=== PATIENT | female | born 1930 | race Caucasian/White ===

== ENCOUNTER 2017-03-06 19:08 | Inpatient (IN) | payer MEDICARE ==
[~2017-03-06] VITALS: Ht 162.6 cm; Wt 77.1 kg
[2017-03-06 19:30] VITALS: BP 140/74
[2017-03-06] MEDS ORDERED: ASCORBIC ACID250 M1 ORAL (19:35)
[2017-03-06] MEDS ORDERED: CEPACOL SORE T1 EAC5 MM (19:35)
[2017-03-06] MEDS ORDERED: BISACODYL5 MG ORAL (19:35)
[2017-03-06] MEDS ORDERED: GABAPENTIN100 MG ORAL (19:38)
[2017-03-06] MEDS ORDERED: FENTANYL1 EAC1 TOPIC (19:38)
[2017-03-06] MEDS ORDERED: [UNRECOGNIZED DRUG - REMARK] ORAL (19:38)
[2017-03-06] MEDS ORDERED: IMODIUM A-D2 M2 PO (19:39)
[2017-03-06] MEDS ORDERED: LEXAPRO10 MG ORAL (19:39)
[2017-03-06] MEDS ORDERED: FUROSEMIDE40 MG ORAL (19:39)
[2017-03-06] MEDS ORDERED: MULTIVITAMINS1 EAC2 ORAL (19:40)
[2017-03-06] MEDS ORDERED: MILK OF MA400 MG/51 ORAL (19:40)
[2017-03-06] MEDS ORDERED: LIDODERM700 M1 TOPIC (19:40)
[2017-03-06] MEDS ORDERED: NYSTATIN15 GM TOPIC (19:44)
[2017-03-06] MEDS ORDERED: PERI-COLACE TA1 EACH PO (19:44)
[2017-03-06] MEDS ORDERED: MYLANTA PO (19:44)
[2017-03-06] MEDS ORDERED: MIRTAZAPINE15 MG ORAL (19:46)
[2017-03-06] MEDS ORDERED: SYNTHROID75 MCG ORAL (19:46)
[2017-03-06] MEDS ORDERED: ROBITUSSIN NIG237 ML PO (19:46)
[2017-03-06] MEDS ORDERED: TEMAZEPAM15 MG ORAL (19:47)
[2017-03-06] MEDS ORDERED: TYLENOL EXTRA500 MG ORAL (19:47)
[2017-03-06] MEDS ORDERED: ACETAMINOPHEN-1 EAC1 ORAL (19:47)
[2017-03-06] MEDS ORDERED: SIMVASTATIN20 MG ORAL (19:48)
[2017-03-06] MEDS ORDERED: VITAMIN D250000 UNI1 ORAL (19:48)
[2017-03-06] MEDS ORDERED: Acetaminophen 650 MG SUPP RECTAL ONE (20:00)
[2017-03-06 20:20] LABS: APPEARANCE,URINE CLEAR; KETONES,URINE NEGATIVE (NEGATIVE); LEUKOCYTE ESTERASE ,URINE 3+ (NEGATIVE); NITRITE,URINE POSITIVE (NEGATIVE); PH,URINE 5 (4.5-8.0); PROTEIN,URINE 3+ (NEGATIVE); UROBILINOGEN,URINE NORMAL MG/DL (0.0-1.0)
[2017-03-06 20:41] LABS: AMORPHOUS SEDIMENT,UR FEW /LPF; BACTERIA,URINE MODERATE /HPF; SQUAMOUS EPITHELIAL CELL,UR FEW /LPF (NONE/OCC)
[2017-03-06 20:45] LABS: BASOPHILS % (AUTO) 0.4 % (0.0-2.0); EOSINOPHILS % (AUTO) 0.1 % (0.0-3.0); LYMPHOCYTES % (AUTO) 15.3 % (20.0-45.0); MEAN CORPUSCULAR HEMOGLOBIN 30.6 PG (27.0-31.0); MEAN CORPUSCULAR HGB CONC 34.2 G/DL (32.0-36.0); MEAN CORPUSCULAR VOLUME 89 FL (80-99); MEAN PLATELET VOLUME 7.7 FL (6.5-10.1); MONOCYTES % (AUTO) 10.4 % (1.0-10.0); NEUTROPHILS % (AUTO) 73.9 % (45.0-75.0); PLATELET COUNT 158 K/UL (150-450); RED BLOOD COUNT 3.52 M/UL (4.20-5.40); RED CELL DISTRIBUTION WIDTH 13.5 % (11.6-14.8); WHITE BLOOD COUNT 12.1 K/UL (4.8-10.8)
[2017-03-06 20:51] VITALS: BP 114/68
[2017-03-06 20:57] LABS: ALANINE AMINOTRANSFERASE 37 U/L (3-33); ANION GAP 21 (5-15); ASPARTATE AMINO TRANSFERASE 58 U/L (5-40); CALCIUM 8.6 mg/dL (8.6-10.2); CARBON DIOXIDE 22 mEQ/L (20-30); CHLORIDE 94 mEQ/L (98-107); CREATININE 2.1 mg/dL (0.5-0.9); HEMOLYSIS 1; POTASSIUM 3.2 mEQ/L (3.4-4.9); SODIUM 137 mEQ/L (135-145); TOTAL PROTEIN 6.6 g/dL (6.6-8.7)
[2017-03-06 20:59] LABS: REFLEX LACTIC ACID YES OR NO YES; TROPONIN I 0.34 ng/mL (<=0.30)
[2017-03-06 21:07] LABS: CKMB 1.5 ng/mL (< 3.8)
[2017-03-06 21:58] VITALS: BP 92/57
[2017-03-06] MEDS ORDERED: DuoNeb 0.5-3(2.5)mg/3ml neb HHN PRN (22:15)
[2017-03-06] MEDS ORDERED: Mylanta II UD 30ml ORAL PRN (22:15)
[2017-03-06] MEDS ORDERED: Nitroglycerin Subl 0.4mg tab (Bottle Of 25) SL PRN (22:15)
[2017-03-06] MEDS ORDERED: Miralax 17gm pkt ORAL PRN (22:15)
--- NOTE | 2017-03-06 22:19 | Emergency Room Report ---
History of Present Illness General Chief Complaint: Altered Mental Status Source: Family Member, EMS, Caregiver Present Illness HPI 87-year-old female presents to ED for evaluation of altered mental status. Daughter at bedside states that patient has been altered since yesterday. She resides in detention. More lethargic and usual. Patient is normally very awake alert oriented. Patient does open his stimulus but closes her eyes back again. Denies any fevers or chills. Denies chest pain or shortness of breath. No signs of distress. No other aggravating relieving factors. Denies any other associated symptoms Allergies: Coded Allergies: HYDROCODONE (Verified Allergy, Unknown, 03/06/17) PENICILLINS (Unverified Allergy, Unknown, 03/06/17) SULFA (SULFONAMIDE ANTIBIOTICS) (Unverified Allergy, Unknown, 03/06/17) Uncoded Allergies: PENICILLIN (Allergy, Unknown, 03/06/17) SULFA (Allergy, Unknown, 03/06/17) Patient History Past Medical History: none Past Surgical History: none Pertinent Family History: none Social History: Denies: alcohol use, drug use, smoking Immunizations: UTD Reviewed Nursing Documentation: PMH: Agreed, PSxH: Agreed Nursing Documentation-PMH Past Medical History: No History, Except For Review of Systems All Other Systems: negative except mentioned in HPI Physical Exam Vital Signs Date Time Temp Pulse Resp B/P Pulse Ox O2 Delivery O2 Flow Rate FiO2 03/06/17 19:07 98.4 93 16 109/66 98 Nasal Cannula 6.0 Sp02 EP Interpretation: reviewed, normal General Appearance: no apparent distress, non-toxic, lethargic Head: normocephalic, atraumatic Eyes: bilateral eye PERRL, bilateral eye normal inspection ENT: hearing grossly normal, normal pharynx, no angioedema, normal voice Neck: full range of motion, supple/symm/no masses Respiratory: chest non-tender, lungs clear, normal breath sounds, speaking full sentences Cardiovascular #1: regular rate, rhythm, no edema Cardiovascular #2: 2+ carotid (R), 2+ carotid (L), 2+ radial (R), 2+ radial (L) , 2+ dorsalis pedis (R), 2+ dorsalis pedis (L) Gastrointestinal: normal bowel sounds, non tender, soft, non-distended, no guarding, no rebound Rectal: deferred Genitourinary: normal inspection, no CVA tenderness Musculoskeletal: back normal, gait/station normal, normal range of motion, non- tender Neurologic: other - lethargic Psychiatric: other - lethargic Reflexes: 3+ bicep (R), 3+ bicep (L), 3+ tricep (R), 3+ tricep (L), 3+ knee (R) , 3+ knee (L) Skin: normal color, no rash, warm/dry, well hydrated Lymphatic: no adenopathy Procedures Critical Care Time Critical Care Time i. I feel this is a highly complex case requiring extensive working including EKG/Rhythm strip, Xray/CT/US, Blood/urine lab work, repeat exams while in ED, and administration of strong opiates/narcotics for pain control, admission to hospital or close patient follow up. Total time: 30 min bedside evaluation and treatment excludes procedures (EKG). Reason for critical care: AMS, UTI, ARF, elevated troponin Possible complications: hypotension, hypertension, NC, shock, arrhythmias, metabolic acidosis, end organ damage, respiratory failure. Interventions: Labs, IV fluids, CT, EKG, chest x-ray, abx, aspirin Course: Patient brought in for altered mental status x2 days. Labs show leukocytosis, elevated BUN/creatinine, UA positive for bacteria, troponins elevated. EKG no acute ischemic changes. Patient given rectal aspirin. Given antibiotics. Given IV fluids Consultations: nursing staff, EMS, family Performed by: Dr Amos Tolerated well condition = critical j. because of unstable vital signs this patient had a condition that could potentially threaten life or limb. I feel this is a critical patient who required my full attention while patient was considered critical. Total Critical Care Time excluding procedures was greater than 35 minutes Medical Decision Making Diagnostic Impression: Primary Impression: Altered mental status Qualified Codes: R41.82 - Altered mental status, unspecified Additional Impressions: ARF (acute renal failure) Qualified Codes: N17.9 - Acute kidney failure, unspecified UTI (urinary tract infection) Qualified Codes: N39.0 - Urinary tract infection, site not specified Elevated troponin ER Course Hospital Course 87-year-old female presenting to ED with generalized weakness, AMS x 2 days Differential diagnoses include: Pneumonia, UTI, sepsis, dehydration, NC/ unstable angina, CVA Clinical course Patient placed on stretcher. On awake overnight monitor with stable vitals are ED course. After initial history and physical, I ordered labs, IV fluids, EKG, chest x-ray, blood cultures, UA. CT head Labs - BUN/Cr elevated, noted leukocytosis, troponins 0.34, UA grossly positive for UTI EKG - RBBB, no acute ischemic changes CXR - no acute process CT head unremarkable abx given. IV fluids given. Given rectal aspirin. Patient remains altered and not endorsing chest pain. Unclear when the patient last known well time is Case discussed with Dr Cloud and they agreed to admit patient to their service for further care and support I feel this is a highly complex case requiring extensive working including EKG/ Rhythm strip, Xray/CT/US, Blood/urine lab work, repeat exams while in ED, and administration of strong opiates/narcotics for pain control, admission to hospital or close patient follow up. Diagnosis - AMS, ARF, UTI, elevated troponin Patient admitted to [facility] in critical condition Labs Test 03/06/17 19:45 03/06/17 20:00 03/06/17 21:45 Urine Color Yellow Urine Appearance Clear Urine pH 5 (4.5-8.0) Urine Specific [place] 1.015 (1.005-1.035) Urine Protein 3+ (NEGATIVE) Urine Glucose (UA) Negative (NEGATIVE) Urine Ketones Negative (NEGATIVE) Urine Occult Blood 5+ (NEGATIVE) Urine Nitrite Positive (NEGATIVE) Urine Bilirubin Negative (NEGATIVE) Urine Urobilinogen Normal MG/DL (0.0-1.0) Urine Leukocyte Esterase 3+ (NEGATIVE) Urine RBC 10-15 /HPF (0 - 2) Urine WBC 5-10 /HPF (0 - 2) Urine Squamous Epithelial Cells Few /LPF (NONE/OCC) Urine Amorphous Sediment Few /LPF (NONE) Urine Bacteria Moderate /HPF (NONE) Urine Opiates Screen Positive (NEGATIVE) Urine Barbiturates Screen Negative (NEGATIVE) Phencyclidine (PCP) Screen Negative (NEGATIVE) Urine Amphetamines Screen Negative (NEGATIVE) Urine Benzodiazepines Screen Negative (NEGATIVE) Urine Cocaine Screen Negative (NEGATIVE) Urine Marijuana (THC) Screen Negative (NEGATIVE) White Blood Count 12.1 K/UL (4.8-10.8) Red Blood Count 3.52 M/UL (4.20-5.40) Hemoglobin 10.8 G/DL (12.0-16.0) Hematocrit 31.5 % (37.0-47.0) Mean Corpuscular Volume 89 FL (80-99) Mean Corpuscular Hemoglobin 30.6 PG (27.0-31.0) Mean Corpuscular Hemoglobin Concent 34.2 G/DL (32.0-36.0) Red Cell Distribution Width 13.5 % (11.6-14.8) Platelet Count 158 K/UL (150-450) Mean Platelet Volume 7.7 FL (6.5-10.1) Neutrophils (%) (Auto) 73.9 % (45.0-75.0) Lymphocytes (%) (Auto) 15.3 % (20.0-45.0) Monocytes (%) (Auto) 10.4 % (1.0-10.0) Eosinophils (%) (Auto) 0.1 % (0.0-3.0) Basophils (%) (Auto) 0.4 % (0.0-2.0) Sodium Level 137 mEQ/L (135-145) Potassium Level 3.2 mEQ/L (3.4-4.9) Chloride Level 94 mEQ/L (98-107) Carbon Dioxide Level 22 mEQ/L (20-30) Anion Gap 21 (5-15) Blood Urea Nitrogen 44 mg/dL (7-23) Creatinine 2.1 mg/dL (0.5-0.9) Estimat Glomerular Filtration Rate mL/min (>60) Glucose Level 168 mg/dL (74-106) Lactic Acid Level 2.20 mmol/L (0.66-2.22) Calcium Level 8.6 mg/dL (8.6-10.2) Total Bilirubin 0.3 mg/dL (0.0-1.2) Aspartate Amino Transf (AST/SGOT) 58 U/L (5-40) Alanine Aminotransferase (ALT/SGPT) 37 U/L (3-33) Alkaline Phosphatase 138 U/L (35-104) Total Creatine Kinase 318 U/L (26-140) Creatine Kinase MB 1.5 ng/mL (< 3.8) Creatine Kinase MB Relative Index 0.4 Troponin I 0.34 ng/mL (<=0.30) Pro-B-Type Natriuretic Peptide 08471 pg/mL (0-450) Total Protein 6.6 g/dL (6.6-8.7) Albumin 3.4 g/dL (3.5-5.2) Globulin 3.2 g/dL Albumin/Globulin Ratio 1.0 (1.0-2.7) EKG Diagnostic Results Rate: normal Rhythm: NSR ST Segments: other - LBBB ASA given to the pt in ED: Yes Rhythm Strip Diag. Results EP Interpretation: yes Rhythm: NSR, no PVC's, no ectopy Chest X-Ray Diagnostic Results EP Interpretation: Yes Findings: no consolidation, no effusion, no pneumothorax, no acute cardiopulmonary disease Number of Views: 1 CT/MRI/US Diagnostic Results CT/MRI/US Diagnostic Results : Imaging Test Ordered: CT Head Impression no acute process Last Vital Signs Date Time Temp Pulse Resp B/P Pulse Ox O2 Delivery O2 Flow Rate FiO2 03/06/17 21:58 100.3 82 20 92/57 96 Nasal Cannula 5.0 Status: improved Disposition: ADMITTED INPATIENT Condition: Critical Referrals: JAMES MARTINEZ MD (PCP) KASI AMOS M.D. Mar 06, 2017 22:19
[2017-03-06 23:00] LABS: APPEARANCE,URINE CLEAR; KETONES,URINE NEGATIVE (NEGATIVE); LEUKOCYTE ESTERASE ,URINE 3+ (NEGATIVE); NITRITE,URINE POSITIVE (NEGATIVE); PH,URINE 5 (4.5-8.0); PROTEIN,URINE 3+ (NEGATIVE); UROBILINOGEN,URINE NORMAL MG/DL (0.0-1.0)
[2017-03-06 23:09] LABS: AMORPHOUS SEDIMENT,UR FEW /LPF; BACTERIA,URINE MANY /HPF; SQUAMOUS EPITHELIAL CELL,UR FEW /LPF (NONE/OCC)
[2017-03-06 23:30] VITALS: BP 93/59
[2017-03-07] VITALS: BP 96/56
[2017-03-07] MEDS ORDERED: Vancomycin 1gm inj IVPB ONE (00:47)
[2017-03-07] MEDS ORDERED: Vancomycin 1 GM in D5W 275 ML IVPB SCH (01:00)
[2017-03-07 04:00] VITALS: BP 94/57
[2017-03-07 06:56] LABS: BASOPHILS % (AUTO) 0.9 % (0.0-2.0); EOSINOPHILS % (AUTO) 0.2 % (0.0-3.0); LYMPHOCYTES % (AUTO) 24.8 % (20.0-45.0); MEAN CORPUSCULAR HEMOGLOBIN 29.1 PG (27.0-31.0); MEAN CORPUSCULAR HGB CONC 31.7 G/DL (32.0-36.0); MEAN CORPUSCULAR VOLUME 92 FL (80-99); MEAN PLATELET VOLUME 7.4 FL (6.5-10.1); MONOCYTES % (AUTO) 13.8 % (1.0-10.0); NEUTROPHILS % (AUTO) 60.4 % (45.0-75.0); PLATELET COUNT 102 K/UL (150-450); RED BLOOD COUNT 3.49 M/UL (4.20-5.40); RED CELL DISTRIBUTION WIDTH 14.1 % (11.6-14.8); WHITE BLOOD COUNT 9.8 K/UL (4.8-10.8)
[2017-03-07 07:04] LABS: ANION GAP 20 (5-15); CALCIUM 7.9 mg/dL (8.6-10.2); CARBON DIOXIDE 20 mEQ/L (20-30); CHLORIDE 97 mEQ/L (98-107); CREATININE 1.7 mg/dL (0.5-0.9); HEMOLYSIS 25; PHOSPHORUS 3.6 mg/dL (2.5-4.8); POTASSIUM 3.8 mEQ/L (3.4-4.9); SODIUM 137 mEQ/L (135-145)
[2017-03-07 08:00] VITALS: BP 94/58
[2017-03-07] MEDS ORDERED: Heparin 5000 units/ml inj SUBQ SCH (09:00)
[2017-03-07] MEDS: Aztreonam Inj 0.5 GM in NS 55 ML IVPB SCH ×3 (09:01→21:28)
--- NOTE | 2017-03-07 09:04 | Diagnostic Imaging Report ---
Indication: Altered mental status Technique: Contiguous 5 mm thick transaxial imaging of the head obtained in a Siemens Sensation [address] scanner. Soft tissue and bone windows generated. Total Dose length Product (DLP): [address] Dose Index Volume (CTDIvol): 70.38 mGy Comparison: none Findings: There is moderate prominence of the ventricles, basal cisterns, and cerebral sulci consistent with atrophy. Moderate, nonspecific, white matter hypoattenuation is noted throughout the brain consistent with chronic small vessel disease. There is no midline shift, edema, acute hemorrhage, mass effect, or abnormal extra-axial fluid collections. Bones and extra osseous soft tissues are unremarkable. Cataracts noted. Impression: No acute intracranial bleed, mass effect or edema. Moderate atrophy of the brain. Evidence of chronic small vessel disease involving white matter tracts. The CT scanner at [facility] is accredited by the [employer] and the scans are performed using protocols designed to limit radiation exposure to as low as reasonably achievable to attain images of sufficient resolution adequate for diagnostic evaluation.
[2017-03-07] MEDS: Escitalopram Oxalate 5mg tab ORAL SCH (10:06)
[2017-03-07] MEDS ORDERED: NS 275ml ONE (10:07)
[2017-03-07] MEDS ORDERED: Tubing IV Secondary IV ONE ×2 (10:07→22:32)
--- NOTE | 2017-03-07 10:28 | Diagnostic Imaging Report ---
Indication: Chest Pain Comparison: None A single view chest radiograph was obtained. Findings: Left hemidiaphragm is elevated. Left basal atelectasis is present. Lung volumes are low. Bones are osteopenic. Impression: Left basal volume loss with atelectasis noted. Osteopenia
[2017-03-07 12:00] VITALS: BP 93/68
--- NOTE | 2017-03-07 12:25 | Consultation ---
History of Present Illness General Date patient seen: Mar 07, 2017 Chief Complaint: Altered Mental Status Referring physician: Dr. Pablo Reason for Consultation: inpaitent management Present Illness HPI 87-year-old female with hx of Dementia, severe osteoporosis, On fentalnyl patch , presented to ED for evaluation of altered mental status. More lethargic and usual. Patient is normally very awake alert oriented. Patient does open his stimulus but closes her eyes back again. Denies any fevers or chills. She was diagnosed to have acute uti and sepsis, with positive troponin and admitted to [facility] for further care. Allergies: Coded Allergies: HYDROCODONE (Verified Allergy, Unknown, 03/06/17) PENICILLINS (Unverified Allergy, Unknown, 03/06/17) SULFA (SULFONAMIDE ANTIBIOTICS) (Unverified Allergy, Unknown, 03/06/17) Uncoded Allergies: PENICILLIN (Allergy, Unknown, 03/06/17) SULFA (Allergy, Unknown, 03/06/17) Medication History Scheduled Ascorbic Acid* (Ascorbic Acid*), 250 MG ORAL DAILY, (Reported) Bisacodyl* (Dulcolax*), 5 MG ORAL DAILY, (Reported) Ergocalciferol (Vitamin D2)* (Vitamin D*), 50,000 UNIT ORAL ONCE A WEEK, ( Reported) Escitalopram Oxalate* (Lexapro*), 5 MG ORAL DAILY, (Reported) Fentanyl 50MCG Patch (Fentanyl 50MCG Patch*), 1 PATCH TOPIC EVERY 72 HOURS, ( Reported) Furosemide* (Lasix*), 40 MG ORAL TWICE A DAY, (Reported) Gabapentin* (Gabapentin*), 200 MG ORAL BEDTIME, (Reported) Levothyroxine Sodium* (Synthroid*), 75 MCG ORAL DAILY, (Reported) Magnesium Hydroxide* (Milk Of Magnesia*), 30 ML ORAL DAILY, (Reported) Mirtazapine* (Remeron*), 7.5 MG ORAL BEDTIME, (Reported) Multivitamins* (Multivitamins*), 1 TAB ORAL DAILY, (Reported) Nystatin* (Nystatin*), 1 APPLIC TOPIC THREE TIMES A DAY, (Reported) Sennosides/Docusate Sodium (Rola-Colace Tablet), 2 EACH PO DAILY, (Reported) Simvastatin (Zocor), 20 MG ORAL BEDTIME, (Reported) Temazepam (Temazepam*), 15 MG ORAL BEDTIME, (Reported) [Cranberry Pill], 2 CAP ORAL DAILY, (Reported) [Mylanta], 30 ML PO EVERY 6 HOURS, (Reported) Scheduled PRN Acetaminophen With Codeine (T#3) (Tylenol #3 Tab*), 1 TAB ORAL Q4H PRN for For Pain, (Reported) Acetaminophen* (Tylenol Extra Strength*), 500 MG ORAL Q6H PRN for Mild Pain/ Temp > 100.5, (Reported) Benzocaine/Menthol (Cepacol Sore Throat Lozenge), 1 EACH MM EVERY 4 HOURS PRN for P, (Reported) Dextromethorphan Hb/Doxylamine (Robitussin Nighttime Cough Dm), 10 ML PO EVERY 4 HOURS PRN for For Cough, (Reported) Miscellaneous Medications Lidocaine (Lidoderm), 1 PATCH TOPIC, (Reported) Loperamide HCl (Imodium A-D), 2 MG PO, (Reported) Patient History Healthcare decision maker Resuscitation status Full Code Advanced Directive on File Review of Systems All Other Systems: negative except mentioned in HPI Physical Exam General Appearance: WD/WN, no apparent distress Lines, tubes and drains: peripheral, central line HEENT: normocephalic, atraumatic Neck: non-tender, normal alignment Respiratory/Chest: chest wall non-tender, lungs clear, normal breath sounds Cardiovascular/Chest: normal peripheral pulses, normal rate Abdomen: normal bowel sounds, non tender Genitourinary/Rectal: normal genital exam Extremities: normal range of motion Last 24 Hour Vital Signs Date Time Temp Pulse Resp B/P Pulse Ox O2 Delivery O2 Flow Rate FiO2 03/07/17 12:00 97.3 71 20 93/68 99 Nasal Cannula 3.0 03/07/17 08:00 71 03/07/17 08:00 97.0 70 20 94/58 99 Nasal Cannula 3.0 03/07/17 06:39 74 14 Nasal Cannula 2.0 95 03/07/17 04:00 98.2 81 16 94/57 94 Nasal Cannula 03/07/17 04:00 62 03/07/17 00:00 61 03/07/17 00:00 98.1 80 16 96/56 96 Nasal Cannula 03/07/17 00:00 98.1 80 16 96/56 96 Room Air 03/06/17 23:55 98.5 03/06/17 23:30 78 20 93/59 99 Nasal Cannula 5.0 03/06/17 23:30 100.3 78 20 93/59 99 Nasal Cannula 5.0 03/06/17 21:58 100.3 82 20 92/57 96 Nasal Cannula 5.0 03/06/17 20:51 100.7 83 24 114/68 94 Nasal Cannula 5.0 03/06/17 19:30 103.8 88 33 140/74 95 Nasal Cannula 5.0 03/06/17 19:07 98.4 93 16 109/66 98 Nasal Cannula 6.0 Intake and Output 03/06/17 03/07/17 19:00 07:00 Intake Total 0 ml Output Total 1000 ml Balance -1000 ml Intake Oral 0 ml Output Urine Total 1000 ml Laboratory Tests Test 03/06/17 19:45 03/06/17 20:00 03/06/17 21:45 03/07/17 05:57 Urine Color Yellow Urine Appearance Clear Urine pH 5 (4.5-8.0) Urine Specific [place] 1.015 (1.005-1.035) Urine Protein 3+ (NEGATIVE) H Urine Glucose (UA) Negative (NEGATIVE) Urine Ketones Negative (NEGATIVE) Urine Occult Blood 5+ (NEGATIVE) H Urine Nitrite Positive (NEGATIVE) H Urine Bilirubin Negative (NEGATIVE) Urine Urobilinogen Normal MG/DL (0.0-1.0) Urine Leukocyte Esterase 3+ (NEGATIVE) H Urine RBC 10-15 /HPF (0 - 2) H Urine WBC 5-10 /HPF (0 - 2) H Urine Squamous Epithelial Cells Few /LPF (NONE/OCC) Urine Amorphous Sediment Few /LPF (NONE) H Urine Bacteria Many /HPF (NONE) H Urine Fine Granular Casts 2-4 /LPF (NONE) H Urine Eosinophils None seen Urine Osmolality Pending Urine Random Sodium 17 mmol/L Urine Random Chloride 28 mmol/L Urine Potassium Timed 56 mmol/L Urine Opiates Screen Positive (NEGATIVE) H Urine Barbiturates Screen Negative (NEGATIVE) Phencyclidine (PCP) Screen Negative (NEGATIVE) Urine Amphetamines Screen Negative (NEGATIVE) Urine Benzodiazepines Screen Negative (NEGATIVE) Urine Cocaine Screen Negative (NEGATIVE) Urine Marijuana (THC) Screen Negative (NEGATIVE) White Blood Count 12.1 K/UL (4.8-10.8) H 9.8 K/UL (4.8-10.8) Red Blood Count 3.52 M/UL (4.20-5.40) L 3.49 M/UL (4.20-5.40) L Hemoglobin 10.8 G/DL (12.0-16.0) L 10.2 G/DL (12.0-16.0) L Hematocrit 31.5 % (37.0-47.0) L 32.1 % (37.0-47.0) L Mean Corpuscular Volume 89 FL (80-99) 92 FL (80-99) Mean Corpuscular Hemoglobin 30.6 PG (27.0-31.0) 29.1 PG (27.0-31.0) Mean Corpuscular Hemoglobin Concent 34.2 G/DL (32.0-36.0) 31.7 G/DL (32.0-36.0) L Red Cell Distribution Width 13.5 % (11.6-14.8) 14.1 % (11.6-14.8) Platelet Count 158 K/UL (150-450) 102 K/UL (150-450) L Mean Platelet Volume 7.7 FL (6.5-10.1) 7.4 FL (6.5-10.1) Neutrophils (%) (Auto) 73.9 % (45.0-75.0) 60.4 % (45.0-75.0) Lymphocytes (%) (Auto) 15.3 % (20.0-45.0) L 24.8 % (20.0-45.0) Monocytes (%) (Auto) 10.4 % (1.0-10.0) H 13.8 % (1.0-10.0) H Eosinophils (%) (Auto) 0.1 % (0.0-3.0) 0.2 % (0.0-3.0) Basophils (%) (Auto) 0.4 % (0.0-2.0) 0.9 % (0.0-2.0) Sodium Level 137 mEQ/L (135-145) 137 mEQ/L (135-145) Potassium Level 3.2 mEQ/L (3.4-4.9) L 3.8 mEQ/L (3.4-4.9) Chloride Level 94 mEQ/L (98-107) L 97 mEQ/L (98-107) L Carbon Dioxide Level 22 mEQ/L (20-30) 20 mEQ/L (20-30) Anion Gap 21 (5-15) H 20 (5-15) H Blood Urea Nitrogen 44 mg/dL (7-23) H 41 mg/dL (7-23) H Creatinine 2.1 mg/dL (0.5-0.9) H 1.7 mg/dL (0.5-0.9) H Estimat Glomerular Filtration Rate mL/min (>60) mL/min (>60) Glucose Level 168 mg/dL (74-106) H 115 mg/dL (74-106) H Lactic Acid Level 2.20 mmol/L (0.66-2.22) 1.20 mmol/L (0.66-2.22) Calcium Level 8.6 mg/dL (8.6-10.2) 7.9 mg/dL (8.6-10.2) L Total Bilirubin 0.3 mg/dL (0.0-1.2) Aspartate Amino Transf (AST/SGOT) 58 U/L (5-40) H Alanine Aminotransferase (ALT/SGPT) 37 U/L (3-33) H Alkaline Phosphatase 138 U/L (35-104) H Total Creatine Kinase 318 U/L (26-140) H Creatine Kinase MB 1.5 ng/mL (< 3.8) Creatine Kinase MB Relative Index 0.4 Troponin I 0.34 ng/mL (<=0.30) *H Pro-B-Type Natriuretic Peptide 64289 pg/mL (0-450) H Total Protein 6.6 g/dL (6.6-8.7) Albumin 3.4 g/dL (3.5-5.2) L 2.7 g/dL (3.5-5.2) L Globulin 3.2 g/dL Albumin/Globulin Ratio 1.0 (1.0-2.7) Phosphorus Level 3.6 mg/dL (2.5-4.8) Height (Feet): 5 Height (Inches): 4.00 Weight (Pounds): 170 Medications Current Medications Medications (Trade) Dose Ordered Sig/Augusto Route PRN Reason Start Time Stop Time Status Last Admin Dose Admin Acetaminophen (Tylenol) 650 mg Q4H PRN ORAL fever 03/06/17 22:15 04/05/17 22:14 Al Hydroxide/Mg Hydroxide (Mylanta II) 30 ml Q6H PRN ORAL dyspepsia 03/06/17 22:15 04/05/17 22:14 Albuterol/ Ipratropium (DuoNeb 0.5-3(2.5)mg/3ml) 3 ml EVERY 4 HOURS PRN HHN Shortness of Breath 03/06/17 22:15 03/11/17 22:14 Aztreonam 0.5 gm/ Sodium Chloride 55 ml @ 110 mls/hr Q8H IVPB 03/07/17 08:00 03/14/17 07:59 03/07/17 09:01 Dextrose/Sodium Chloride (D5 0.45% NS) 1,000 ml @ 75 mls/hr [id number] IV 03/07/17 12:15 04/06/17 12:14 UNV Escitalopram Oxalate (Lexapro) 5 mg DAILY ORAL 03/07/17 09:00 04/06/17 08:59 03/07/17 10:06 Heparin Sodium (Porcine) 5000 units 5,000 units EVERY 12 HOURS SUBQ 03/07/17 21:00 04/06/17 20:59 Levothyroxine Sodium (Synthroid) 75 mcg DAILY@0630 ORAL 03/07/17 06:30 04/06/17 06:29 03/07/17 05:48 Mirtazapine (Remeron) 7.5 mg BEDTIME ORAL 03/07/17 21:00 04/06/17 20:59 Nitroglycerin (Ntg) 0.4 mg Q5M PRN SL Prn Chest Pain 03/06/17 22:15 04/05/17 22:14 Ondansetron HCl (Zofran) 4 mg Q6H PRN IVP Nausea & Vomiting 03/06/17 22:15 04/05/17 22:14 Polyethylene Glycol (Miralax) 17 gm DAILYPRN PRN ORAL Constipation 03/06/17 22:15 04/05/17 22:14 Temazepam (Restoril) 15 mg HSPRN PRN ORAL Insomnia 03/06/17 22:15 03/13/17 22:14 03/07/17 00:33 Vancomycin HCl 1 ea 1 ea DAILY PRN MISC Per rx protocol 03/06/17 22:15 04/05/17 22:14 Vancomycin HCl/ Dextrose (Vancomycin/D5W) 275 ml @ 183.3 mls/ hr Q24H IVPB 03/07/17 01:00 03/12/17 00:59 03/07/17 00:59 Assessment/Plan Problem List: (1) Sepsis ICD Codes: A41.9 - Sepsis, unspecified organism SNOMED: 87016958 (2) UTI (urinary tract infection) ICD Codes: N39.0 - Urinary tract infection, site not specified SNOMED: 63544397, [id number] Qualifiers: Qualified Codes: N39.0 - Urinary tract infection, site not specified (3) ARF (acute renal failure) ICD Codes: N17.9 - Acute kidney failure, unspecified SNOMED: 67002970 Qualifiers: Qualified Codes: N17.9 - Acute kidney failure, unspecified (4) Elevated troponin ICD Codes: R74.8 - Abnormal levels of other serum enzymes SNOMED: 095015308, 306317182 (5) Altered mental status ICD Codes: R41.82 - Altered mental status, unspecified SNOMED: 470421517, [id number] Qualifiers: Qualified Codes: R41.82 - Altered mental status, unspecified Assessment/Plan iv fluids IV antibiotics check echo check urine cultures renal w/u Neuro evaluation repeat troponin D[place]TON [place] Mar 07, 2017 12:25
--- NOTE | 2017-03-07 12:50 | Cardiology Report ---
APPROVED REPORT EXAM: Two-dimensional and M-mode echocardiogram with Doppler and color Doppler. INDICATION Left Ventricular Function M-Mode DIMENSIONS IVSd1.2 (0.7-1.1cm)Left Atrium (MM)3.4 (1.6-4.0cm) LVDd3.7 (3.5-5.6cm)Aortic Root3.2 (2.0-3.7cm) PWd1.1 (0.7-1.1cm)Aortic Cusp Exc.1.5 (1.5-2.0cm) LVDs2.7 (2.5-4.0cm) PWs1.2 cm Technically difficult study due to poor acoustic windows. Study quality precludes accurate assessment of regional wall motion. Normal left ventricular chamber size, systolic function and wall motion. Left ventricular ejection fraction estimated to be 55 %. Mild left ventricular hypertrophy. No evidence of pericardial fat or effusion. All other cardiac chamber sizes are within normal limits. Mild focal aortic valve sclerosis with adequate cusp excursion. Heavily thickened mitral valve leaflets with normal excursion. Heavy mitral annulus and aortic root calcification. Pulmonic valve not well visualized. Normal tricuspid valve structure. Subcostal views not obtainable. A color flow and spectral Doppler study was performed and revealed: No aortic regurgitation. Mild to moderate mitral regurgitation. Mitral diastolic velocities suggest reduced left ventricular relaxation (Grade I). Moderate to severe tricuspid regurgitation. Tricuspid systolic velocities suggests peak right ventricular systolic pressure of 51 mmHg, consistent with moderate pulmonary hypertension. No pulmonic regurgitation present.
[2017-03-07 12:52] LABS: TROPONIN I < 0.30 ng/mL (<=0.30)
[2017-03-07] MEDS: D5 1/2NS 1,000 ML IV SCH (13:00)
--- NOTE | 2017-03-07 13:10 | Cardiology Report ---
APPROVED REPORT EKG Measurement Heart [id number] CT 136P-7 [id number] Normal sinus rhythm Right bundle branch block Possible Lateral infarct, age undetermined Abnormal ECG
--- NOTE | 2017-03-07 14:36 | Consultation ---
Consult Note Consult Note ID Dic # [id number] DEIS HOLLINGSWORTH M.D. Mar 07, 2017 14:36
--- NOTE | 2017-03-07 15:28 | Wound Care Consultation ---
Wound Assessment Wound Assessment #1: Wound Present on Admission: Yes New Wound: No Status Change of Wound: No Wound Location Body Site Modif: mid Wound Location Body Site: sacral Wound Type: pressure ulcer Pete Test: Does not Pete Pressure Ulcer Stage: IV/unstageable Wound Thickness: Full Thickness Wound Length: 1.5 Wound Width: 0.8 Wound Depth: utd Percent of Wound Bed Yellow/Wh: 100 Wound Drainage Description: Serosanguineous Wound Drainage Amount: Scant Wound Drainage Odor: None/Absent Tissue Surrounding Wound: Macerated Wound General Appearance: Reddened, Necrotic Wound Assessment #2: Wound Number: #2 Wound Present on Admission: Yes New Wound: No Status Change of Wound: No Wound Location Body Site Modif: left, posterior Wound Location Body Site: ear Wound Type: pressure ulcer Pete Test: Does not Pete Pressure Ulcer Stage: I Wound Length: 0.5 Wound Width: 0.3 Percent of Wound Domino/Red: 100 Wound Drainage Amount: None Wound Drainage Odor: None/Absent Tissue Surrounding Wound: Erythemic Wound General Appearance: Reddened Wound Assessment #3: Wound Number: #3 Wound Present on Admission: Yes New Wound: No Status Change of Wound: No Wound Location Body Site Modif: right, posterior Wound Location Body Site: ear Wound Type: pressure ulcer Pete Test: Does not Pete Pressure Ulcer Stage: I Wound Length: 0.3 Wound Width: 0.3 Percent of Wound Domino/Red: 100 Wound Drainage Amount: None Wound Drainage Odor: None/Absent Tissue Surrounding Wound: Erythemic Wound General Appearance: Reddened Wound Comment #1 Sacral stage IV/unstageable pressure ulcer #2 Left ear stage I pressure ulcer #3 Right ear stage I pressure ulcer Recommendation -Sacral area Cleanse with saline, pat dry, apply Therahoney gel to wound bed, apply Triad cream to keiry wound, cover with Bordered gauze daily and PRN soiled/dislodged -Left and Right ear stage I pressure ulcer, Local care per protocol -Offload both heels -Heel protector on both heels -Keep clean and dry -Turn and reposition -Optimize nutrition -Low air loss overlay mattress -Assess and f/u accordingly for any changes ZULY HEDRICK RN Mar 07, 2017 15:28
[2017-03-07 16:00] VITALS: BP 101/66
--- NOTE | 2017-03-07 16:33 | History & Physical ---
History and Physical History & Physicial Dictated for Int Med - Dr Cloud no. [id number]. KANCHAN JAMISON Mar 07, 2017 16:33
[2017-03-07 19:00] LABS: ALANINE AMINOTRANSFERASE 35 U/L (3-33); ALBUMIN/GLOBULIN RATIO 0.9 (1.0-2.7); ANION GAP 26 (5-15); ASPARTATE AMINO TRANSFERASE 61 U/L (5-40); CALCIUM 7.8 mg/dL (8.6-10.2); CARBON DIOXIDE 15 mEQ/L (20-30); CHLORIDE 95 mEQ/L (98-107); CREATININE 1.8 mg/dL (0.5-0.9); HEMOLYSIS 25; MAGNESIUM 2.2 mg/dL (1.7-2.5); PHOSPHORUS 3.7 mg/dL (2.5-4.8); POTASSIUM 4.4 mEQ/L (3.4-4.9); SODIUM 136 mEQ/L (135-145); TOTAL PROTEIN 5.9 g/dL (6.6-8.7); URIC ACID 9.7 mg/dL (3.0-7.5)
[2017-03-07 19:10] LABS: THYROID STIMULATING HORMONE 0.369 uIU/mL (0.300-4.500)
--- NOTE | 2017-03-07 19:37 | Neurology Progress Note ---
Objective Physical Exam Last Vital Signs Date Time Temp Pulse Resp B/P Pulse Ox O2 Delivery O2 Flow Rate FiO2 03/07/17 19:18 Nasal Cannula 3.0 32 03/07/17 19:17 82 16 03/07/17 16:00 98.2 101/66 98 Laboratory Tests Test 03/06/17 19:45 03/06/17 20:00 03/06/17 21:45 03/07/17 05:57 Urine Color Yellow Urine Appearance Clear Urine pH 5 (4.5-8.0) Urine Specific Ackerly 1.015 (1.005-1.035) Urine Protein 3+ (NEGATIVE) H Urine Glucose (UA) Negative (NEGATIVE) Urine Ketones Negative (NEGATIVE) Urine Occult Blood 5+ (NEGATIVE) H Urine Nitrite Positive (NEGATIVE) H Urine Bilirubin Negative (NEGATIVE) Urine Urobilinogen Normal MG/DL (0.0-1.0) Urine Leukocyte Esterase 3+ (NEGATIVE) H Urine RBC 10-15 /HPF (0 - 2) H Urine WBC 5-10 /HPF (0 - 2) H Urine Squamous Epithelial Cells Few /LPF (NONE/OCC) Urine Amorphous Sediment Few /LPF (NONE) H Urine Bacteria Many /HPF (NONE) H Urine Fine Granular Casts 2-4 /LPF (NONE) H Urine Eosinophils None seen Urine Osmolality Pending Urine Random Sodium 17 mmol/L Urine Random Chloride 28 mmol/L Urine Potassium Timed 56 mmol/L Urine Opiates Screen Positive (NEGATIVE) H Urine Barbiturates Screen Negative (NEGATIVE) Phencyclidine (PCP) Screen Negative (NEGATIVE) Urine Amphetamines Screen Negative (NEGATIVE) Urine Benzodiazepines Screen Negative (NEGATIVE) Urine Cocaine Screen Negative (NEGATIVE) Urine Marijuana (THC) Screen Negative (NEGATIVE) White Blood Count 12.1 K/UL (4.8-10.8) H 9.8 K/UL (4.8-10.8) Red Blood Count 3.52 M/UL (4.20-5.40) L 3.49 M/UL (4.20-5.40) L Hemoglobin 10.8 G/DL (12.0-16.0) L 10.2 G/DL (12.0-16.0) L Hematocrit 31.5 % (37.0-47.0) L 32.1 % (37.0-47.0) L Mean Corpuscular Volume 89 FL (80-99) 92 FL (80-99) Mean Corpuscular Hemoglobin 30.6 PG (27.0-31.0) 29.1 PG (27.0-31.0) Mean Corpuscular Hemoglobin Concent 34.2 G/DL (32.0-36.0) 31.7 G/DL (32.0-36.0) L Red Cell Distribution Width 13.5 % (11.6-14.8) 14.1 % (11.6-14.8) Platelet Count 158 K/UL (150-450) 102 K/UL (150-450) L Mean Platelet Volume 7.7 FL (6.5-10.1) 7.4 FL (6.5-10.1) Neutrophils (%) (Auto) 73.9 % (45.0-75.0) 60.4 % (45.0-75.0) Lymphocytes (%) (Auto) 15.3 % (20.0-45.0) L 24.8 % (20.0-45.0) Monocytes (%) (Auto) 10.4 % (1.0-10.0) H 13.8 % (1.0-10.0) H Eosinophils (%) (Auto) 0.1 % (0.0-3.0) 0.2 % (0.0-3.0) Basophils (%) (Auto) 0.4 % (0.0-2.0) 0.9 % (0.0-2.0) Sodium Level 137 mEQ/L (135-145) 137 mEQ/L (135-145) Potassium Level 3.2 mEQ/L (3.4-4.9) L 3.8 mEQ/L (3.4-4.9) Chloride Level 94 mEQ/L (98-107) L 97 mEQ/L (98-107) L Carbon Dioxide Level 22 mEQ/L (20-30) 20 mEQ/L (20-30) Anion Gap 21 (5-15) H 20 (5-15) H Blood Urea Nitrogen 44 mg/dL (7-23) H 41 mg/dL (7-23) H Creatinine 2.1 mg/dL (0.5-0.9) H 1.7 mg/dL (0.5-0.9) H Estimat Glomerular Filtration Rate mL/min (>60) mL/min (>60) Glucose Level 168 mg/dL (74-106) H 115 mg/dL (74-106) H Lactic Acid Level 2.20 mmol/L (0.66-2.22) 1.20 mmol/L (0.66-2.22) Calcium Level 8.6 mg/dL (8.6-10.2) 7.9 mg/dL (8.6-10.2) L Total Bilirubin 0.3 mg/dL (0.0-1.2) 0.2 mg/dL (0.0-1.2) Aspartate Amino Transf (AST/SGOT) 58 U/L (5-40) H 61 U/L (5-40) H Alanine Aminotransferase (ALT/SGPT) 37 U/L (3-33) H 35 U/L (3-33) H Alkaline Phosphatase 138 U/L (35-104) H 120 U/L (35-104) H Total Creatine Kinase 318 U/L (26-140) H Creatine Kinase MB 1.5 ng/mL (< 3.8) Creatine Kinase MB Relative Index 0.4 Troponin I 0.34 ng/mL (<=0.30) *H < 0.30 ng/mL (<=0.30) Pro-B-Type Natriuretic Peptide 62089 pg/mL (0-450) H Total Protein 6.6 g/dL (6.6-8.7) 5.9 g/dL (6.6-8.7) L Albumin 3.4 g/dL (3.5-5.2) L 2.7 g/dL (3.5-5.2) L Globulin 3.2 g/dL 3.1 g/dL Albumin/Globulin Ratio 1.0 (1.0-2.7) 0.9 (1.0-2.7) L Uric Acid 9.7 mg/dL (3.0-7.5) H Phosphorus Level 3.6 mg/dL (2.5-4.8) Magnesium Level 2.2 mg/dL (1.7-2.5) Thyroid Stimulating Hormone (TSH) 0.369 uIU/mL (0.300-4.500) Free Thyroxine 1.11 ng/dL (0.86-1.85) Impression/Recommendations Recommendations # [id number] CATHIE SCHREIBER Mar 07, 2017 19:37
[2017-03-07 20:41] VITALS: BP 125/69
[2017-03-07] MEDS: Heparin 5000 units/ml inj SUBQ SCH (21:00)
--- NOTE | 2017-03-07 22:28 | Consultation ---
DATE OF CONSULTATION: INFECTIOUS DISEASE CONSULTATION: REFERRING PHYSICIAN: Nasreen Benitez M.D. REASON FOR CONSULTATION: Evaluation of patient for sepsis and antibiotic management. HISTORY OF PRESENT ILLNESS: The patient is an 87-year-old female with multiple medical problems as listed below who was brought to the emergency room due to worsening of mental status with general weakness. The patient has been admitted to this medical center for further workup. Infectious diseases consultation has been requested for further evaluation of the patient's for possible sepsis. At time of admission, the patient has leukocytosis of 12,000. PAST MEDICAL HISTORY: 1. History of chronic low back pain. 2. Osteoporosis. 3. Hyperlipidemia. 4. Hypothyroidism. MEDICATIONS: IV aztreonam and vancomycin. ALLERGIES: Penicillin and sulfa. SOCIAL HISTORY: The patient lives in [facility]. FAMILY HISTORY: Not contributing. REVIEW OF SYSTEMS: HEENT: No recent change in vision or hearing. Pulmonary: No cough or shortness of breath. Cardiovascular: No chest pain or palpitations. Gastrointestinal/Abdomen: No nausea or vomiting. Genitourinary: No dysuria. PHYSICAL EXAMINATION: VITAL SIGNS: Temperature 97.3 degrees, blood pressure 92/68, pulse 86, respiratory rate 18, and T-max 103.8 degrees. HEENT: Mild pale conjunctivae. No icterus. NECK: Supple. CHEST: Coarse breathing sounds. HEART: S1-S2 . ABDOMEN: Soft and nontender. EXTREMITIES: No cyanosis. NEUROLOGIC: Awake and alert. LABORATORY AND DIAGNOSTIC DATA: CT scan, no acute intracranial bleed. Chest x-ray with left basal volume loss, atelectasis osteopenia. Labs, WBC 9.8, hemoglobin 10.2, and platelets 102,000. UA shows 5 to 10 white blood cells and 10 to 15 red blood cells. BUN 41 and creatinine 1.7. ALT, AST, and alkaline phosphatase are mildly elevated. ASSESSMENT: The patient is an 87-year-old female with multiple medical problems who has been admitted to this medical center due to fever and worsening mental status and general weakness that appears has overall improved since admission. The patient was found abnormal liver function tests. possibility of bacteremia and urinary tract infection biliary disease. PLAN: 1. We will continue the patient on vancomycin and aztreonam for now. 2. Monitor CBC. 3. Monitor BMP. 4. Monitor cultures (blood and urine). 5. Ultrasound of the abdomen and evaluation of biliary tract. 6. Monitor chest x-ray. 7. Based on patient's current labs, we will do further recommendation. Thank you, Dr. Benitez, for allowing me to participate in the care of this patient. I will follow the patient with you during this hospitalization. Will Mario M.D. DR: Beckie JOB#: [id number] CC:
[2017-03-07] MEDS ORDERED: D5 1/2NS 1000ml IV ONE (22:32)
--- NOTE | 2017-03-07 23:28 | History and Physical Report ---
DATE OF ADMISSION: 03/06/2017 CHIEF COMPLAINT: The patient is an 87-year-old white female who presents with a chief complaint of altered mental status. HISTORY OF PRESENT ILLNESS: Much of the history and physical is obtained from the patient's chart. The patient still is unable to provide much of the history and physical. The patient is a resident of [facility]. According to staff at [facility], the patient became increasingly altered over the past 24 hours. The patient did not know where she was. The patient was transported to [facility] Emergency room. The patient was found to have urinary tract infection. The patient was admitted for altered mental status and urinary tract infection to rule out sepsis. PAST MEDICAL HISTORY: Significant for, 1. Hypothyroidism. 2. Hypercholesterolemia. 3. Lumbar stenosis. 4. Osteoporosis. PAST SURGICAL HISTORY: Unknown. CURRENT MEDICATIONS: 1. Vitamin C one tablet p.o. daily. 2. Cranberry pills two tablets p.o. daily. 3. Neurontin 100 mg two tablets p.o. at bedtime. 4. Lasix 40 mg one tablet p.o. twice daily. 5. Lexapro 5 mg one tablet p.o. daily. 6. Lidoderm patch applied daily. 7. Remeron 15 mg one-half tablet p.o. at bedtime. 8. Synthroid 0.075 mg one tablet p.o. daily. 9. Restoril 15 mg one tablet p.o. at bedtime. 10. Zocor 20 mg one tablet p.o. at bedtime. ALLERGIES: 1. Sulfa. 2. Penicillin. 3. Hydrocodone. SOCIAL HISTORY: The patient is and denies tobacco or alcohol use. REVIEW OF SYSTEMS: Unable to obtain secondary to the patient's mental status. PHYSICAL EXAMINATION: VITAL SIGNS: Temperature 98.1 degrees, respirations 16, pulse 80, blood pressure 93 to 96/56 to 68. GENERAL: The patient is a well-developed and well-nourished pleasant white female, in no apparent distress. HEENT: Eyes, pupils are equal and responsive to light and accommodation. Extraocular movements are intact. NECK: Supple without lymphadenopathy. CHEST: Lungs are clear to auscultation bilaterally without wheezes or rales. CARDIOVASCULAR: Regular rate. S1 and S2 are normal without murmurs, rubs, or gallops. ABDOMEN: Soft, nontender, and nondistended. Positive bowel sounds. No evidence of hepatosplenomegaly. Currently, no rebound or guarding noted. EXTREMITIES: Negative for clubbing, cyanosis, or edema. RECTAL/GENITAL: Refused. NEUROLOGIC: Cranial nerves II through XII are grossly intact without focal deficits. Motor strength is 5/5 bilaterally. Deep tendon reflexes 2+ plantar. LABORATORY STUDIES: WBC 12.1, hemoglobin 10.8, hematocrit 31.5, and platelets 158,000. Sodium 137, potassium 3.2, chloride 94, CO2 22, BUN 44, and creatinine 2.1. Glucose 168. BNP elevated at 18,421. Urinalysis showed 5+ occult blood, positive nitrites, and 3+ leukocyte esterase with 10 to 15 RBCs and 5 to 10 WBCs. ASSESSMENT: This is an 87-year-old white female. 1. Altered mental status. 2. Urinary tract infection. 3. Acute renal failure. 4. Congestive heart failure. 5. Hypothyroidism. 6. Hypercholesterolemia. 7. Lumbar stenosis. 8. Osteoporosis. TREATMENT: 1. Urinary tract infection. An Infectious Disease consultation has been obtained with Dr. Mario. The patient has been started empirically on vancomycin and aztreonam. This is to cover for atypical bacteria as the patient is a senior care facility patient. We will follow recommendations of Infectious Disease. Wait for urine and blood culture results. 2. Renal failure. This may be secondary to urinary tract infection as above. 3. Altered mental status is probably secondary to urinary tract infection as above. 4. Congestive heart failure. Repeat BMP is pending. Initial troponin level is within normal limits. 5. Hypothyroidism. Continue Synthroid as above. 6. Hypercholesterolemia. Continue Zocor as above. 7. Lumbar stenosis. 8. Osteoporosis. Adrian Pablo M.D. DR: DOROTEO JOB#: [id number] CC:
--- NOTE | 2017-03-07 23:28 | Consultation ---
DATE OF CONSULTATION: 03/07/2017 NEUROLOGICAL CONSULTATION CONSULTING PHYSICIAN: Ryan Ceballos M.D. PRIMARY PHYSICIAN: Lito Adore Rodriguez REQUESTING PHYSICIAN: Lv Cloud M.D. HISTORY OF PRESENT ILLNESS: The patient is an 87-year-old female seen in neurological consultation to evaluate new changes in mental status. The patient was examined in the presence of her daughter, who gave additional information. Apparently, three days ago, she was found to be unusually weak, but still coherent than yesterday. Family came and visited, found her in bed sleepy, mumbling, incoherent, and confused. Paramedics were called to the scene. She was brought to emergency room. She was described as opening eyes to stimulation only briefly. Vital signs on admission included blood pressure 109/66, she was afebrile, but lethargic. Her initial diagnostic studies included EKG with right bundle-branch block. No acute ischemic changes. Laboratory work included CBC study with elevated WBC 12.1, anemia, hemoglobin 10, and hematocrit 31.5. Chemistry panel, elevated anion gap of 21, BUN of 44 and creatinine of 2.1. Elevated AST at 58, ALT 37, and CK of 318. Elevated BNP 18,421. Toxicology panel was positive only for opiates. Her urinalysis with WBC 5-10 with 3+ leukocyte esterase and 3+ protein. Her CAT scan of the brain revealed moderate ventriculomegaly, atrophy, white matter hypoattenuation consistent with chronic small vessel disease. No evidence of acute abnormalities noted. Her chest x-ray shows left basal volume loss with atelectasis noted. Since admission until present, the patient is maintained on IV fluids and antibiotics; her condition improved. PAST MEDICAL HISTORY: The patient has a history of chronic low back pain due to severe spinal stenosis, history of severe osteoporosis, hyperlipidemia, and hypothyroidism. The patient has chronic pain, which is opiate dependent. She has chronic constipation. MEDICATIONS: Her treatment included Robitussin, Lexapro 5 mg daily, fentanyl patch 50 mcg every 72 hours, furosemide, gabapentin 200 mg at bedtime, Synthroid, lidocaine patch, Imodium, milk of magnesia, Remeron 7.5 mg at bedtime, nystatin, simvastatin 20 mg at bedtime, and temazepam. The patient has p.r.n. Tylenol No. 3. ALLERGIES: Hydrocodone, penicillin, and sulfa drugs. SOCIAL HISTORY: The patient is a resident of a nursing facility. She has supportive family. No evidence of alcohol or drug abuse. Nonsmoker. FAMILY HISTORY: Noncontributory. REVIEW OF SYSTEMS: The patient's baseline being awake, coherent with mild cognitive deficiency, being able to serve herself food, helping with dressing. She is wheelchair bound for at least last three years. She has a history of chronic low back pain. Pain in her both lower extremities for at least 10 to 12 years. This made her bedridden and wheelchair bound while being maintained on opiates for pain management. Denies chest pain or palpitation. No headache. No dizziness. She has constipation, but no urine incontinence. Obesity, some forgetfulness. PHYSICAL EXAMINATION: GENERAL: This is a well-developed, moderately obese female, lying comfortably in bed, daughter at bedside. VITAL SIGNS: Now stable, although blood pressure 93/68, temperature 97.3 degrees, heart rate of 71, and pulse oximetry 99%. HEENT: Head, normocephalic. No evidence of trauma. Eyes, ears, and throat are clear. NECK: Supple. No meningeal signs. MUSCULOSKELETAL: Remarkable for tenderness in patient's left shoulder with significant limitation in range of motion, chronic. Acute tenderness on palpation of lumbar paraspinal region. Arthritic changes in both knees and ankles. Peripheral pulses 1+ and symmetric. MENTAL STATUS: The patient is alert and oriented to her name, age, but forgets the name of the place. She is coherent, although has limited verbal output. CRANIAL NERVE II: Pupils, both responding to light and accommodation. Extraocular movements intact. No nystagmus. CRANIAL NERVE V: Normal corneal responses. CRANIAL NERVE VII: No facial asymmetry. CRANIAL NERVE VIII: Decreased hearing. CRANIAL NERVE IX THROUGH XII: Tongue is in midline. Symmetric palate elevation. MOTOR EXAMINATION: Normal muscle tone and strength in both upper extremities except limitation in range of motion of left shoulder. She has significant rigidity in both lower extremities, unable to lift against gravity both lower extremities, 5-/5 both feet flexion and extension. Deep tendon reflexes depressed bilaterally. Plantar response is mute. SENSORY EXAMINATION: Withdrawing to pin stimulation all limbs. IMPRESSION: 1. New onset of verbal unresponsiveness, lethargy due to underlying infection, urinary tract infection or pneumonia in the setting of sedative treatment with opiates. 2. Mild cognitive impairment. 3. Severe lumbar spinal stenosis with paraparesis, wheelchair bound. 4. Chronic pain syndrome, opiate dependent. 5. History of hypothyroidism. 6. History of hyperlipidemia. 7. History of depression. RECOMMENDATION: The patient to continue with IV fluids, antibiotics to cover underlying infection. Attempt to somewhat reduce her opiates from 50 to 25 mcg per 72 hours. Avoid Tylenol with codeine. Continue with aspirin. Discussed the patient's status with the family. Thank you for allowing me to see this interesting patient in neurological consultation. Ryan Adore Ceballos DR: GYPSY JOB#: [id number] CC:
[2017-03-08] VITALS: BP 125/69
[2017-03-08] MEDS ORDERED: Vancomycin 1 GM in D5W 275 ML IVPB SCH (01:00)
[2017-03-08] MEDS: D5 1/2NS 1,000 ML IV SCH ×2 (03:03→17:45)
[2017-03-08 04:00] VITALS: BP 118/71
[2017-03-08 05:17] LABS: ANION GAP 19 (5-15); CALCIUM 8.6 mg/dL (8.6-10.2); CARBON DIOXIDE 22 mEQ/L (20-30); CHLORIDE 97 mEQ/L (98-107); CREATININE 1.4 mg/dL (0.5-0.9); HEMOLYSIS 14; POTASSIUM 3.8 mEQ/L (3.4-4.9); SODIUM 138 mEQ/L (135-145)
[2017-03-08 05:26] LABS: BASOPHILS % (AUTO) 0.7 % (0.0-2.0); EOSINOPHILS % (AUTO) 1.4 % (0.0-3.0); LYMPHOCYTES % (AUTO) 21.6 % (20.0-45.0); MEAN CORPUSCULAR HEMOGLOBIN 29.3 PG (27.0-31.0); MEAN CORPUSCULAR HGB CONC 31.7 G/DL (32.0-36.0); MEAN CORPUSCULAR VOLUME 92 FL (80-99); MEAN PLATELET VOLUME 7.7 FL (6.5-10.1); MONOCYTES % (AUTO) 11.6 % (1.0-10.0); NEUTROPHILS % (AUTO) 64.7 % (45.0-75.0); PLATELET COUNT 180 K/UL (150-450); RED CELL DISTRIBUTION WIDTH 14.7 % (11.6-14.8); WHITE BLOOD COUNT 8.6 K/UL (4.8-10.8)
[2017-03-08 06:00] LABS: TROPONIN I < 0.30 ng/mL (<=0.30)
[2017-03-08] MEDS: Aztreonam Inj 0.5 GM in NS 55 ML IVPB SCH ×3 (07:36→23:35)
[2017-03-08 08:00] VITALS: BP 102/65
[2017-03-08] MEDS ORDERED: Vancomycin 1gm/D5W 275ml IVPB ONE ×2 (08:00)
[2017-03-08] MEDS: Escitalopram Oxalate 5mg tab ORAL SCH (08:31)
[2017-03-08] MEDS: Heparin 5000 units/ml inj SUBQ SCH ×2 (08:32→20:50)
--- NOTE | 2017-03-08 09:25 | Diagnostic Imaging Report ---
Indication: Abnormal renal function tests Technique: Grayscale and duplex images of the kidneys, retroperitoneum, and bladder were obtained. Comparison: Findings: Right kidney measures 11.7 cm in length. Left kidney measures 8.7 cm in length. Both kidneys demonstrate normal echogenicity. No hydronephrosis. Possible 2.7 cm diameter exophytic mass is seen on the border of the interpolar region of the left kidney. This is isoechoic to renal parenchyma, could just represent a dromedary hump. Normal inferior vena cava. Bladder is empty, contains a Antunez catheter. Impression: Exophytic 2.7 cm left renal mass versus physiologic dromedary hump. If clinically indicated, consider CT to clarify Negative for hydronephrosis Mildly atrophic left kidney Empty bladder with Antunez catheter.
--- NOTE | 2017-03-08 11:58 | Diagnostic Imaging Report ---
Indication: Abdominal pain Technique: Grayscale and duplex images of the right upper quadrant Comparison: None Findings: The pancreas is unremarkable. The liver demonstrates normal echogenicity, no focal abnormality. There is a trace right pleural effusion. Gallbladder is poorly visualized. Shadowing in the region of the gallbladder fossa likely reflects gallstones if the gallbladder is present, but could also represent shadowing from the duodenum if there has been prior cholecystectomy. Common bile duct measures 3 mm in diameter. Right kidney measures 9.8 cm in length, demonstrates a 1 cm upper pole cyst Impression: Uncertain visualization of the gallbladder. Shadowing gallbladder fossa may represent a stone filled gallbladder, versus shadowing from the duodenum if there has been prior cholecystectomy. Correlate with surgical history. Negative for dilated ducts Small right pleural effusion Incidental finding right upper pole renal cyst
[2017-03-08 12:00] VITALS: BP 94/62
[2017-03-08 16:00] VITALS: BP 125/69
--- NOTE | 2017-03-08 16:22 | Internal Med Progress Note ---
Subjective Date of Service: Mar 08, 2017 Physician Name Kanchan Jamison Attending Physician Lv Cloud MD Current Medications Medications (Trade) Dose Ordered Sig/Augusto Route PRN Reason Start Time Stop Time Status Last Admin Dose Admin Acetaminophen (Tylenol) 650 mg Q4H PRN ORAL fever 03/06/17 22:15 04/05/17 22:14 Al Hydroxide/Mg Hydroxide (Mylanta II) 30 ml Q6H PRN ORAL dyspepsia 03/06/17 22:15 04/05/17 22:14 Albuterol/ Ipratropium (DuoNeb 0.5-3(2.5)mg/3ml) 3 ml EVERY 4 HOURS PRN HHN Shortness of Breath 03/06/17 22:15 03/11/17 22:14 Aztreonam/Sodium Chloride (Azactam/Sodium Chloride) 55 ml @ 110 mls/hr Q8H IVPB 03/07/17 08:00 03/14/17 07:59 03/08/17 07:36 Dextrose/Sodium Chloride (D5 0.45% NS) 1,000 ml @ 75 mls/hr [id number] IV 03/07/17 13:00 04/06/17 12:59 03/08/17 03:03 Escitalopram Oxalate (Lexapro) 5 mg DAILY ORAL 03/07/17 09:00 04/06/17 08:59 03/08/17 08:31 Heparin Sodium (Porcine) 5000 units 5,000 units EVERY 12 HOURS SUBQ 03/07/17 21:00 04/06/17 20:59 03/08/17 08:32 Levothyroxine Sodium (Synthroid) 75 mcg DAILY@0630 ORAL 03/07/17 06:30 04/06/17 06:29 03/08/17 07:22 Lidocaine 1 patch 1 patch DAILY TDERMAL 03/07/17 12:30 04/06/17 12:29 03/08/17 08:31 Mirtazapine (Remeron) 7.5 mg BEDTIME ORAL 03/07/17 21:00 04/06/17 20:59 03/07/17 21:29 Nitroglycerin (Ntg) 0.4 mg Q5M PRN SL Prn Chest Pain 03/06/17 22:15 04/05/17 22:14 Ondansetron HCl (Zofran) 4 mg Q6H PRN IVP Nausea & Vomiting 03/06/17 22:15 04/05/17 22:14 Polyethylene Glycol (Miralax) 17 gm DAILYPRN PRN ORAL Constipation 03/06/17 22:15 04/05/17 22:14 Temazepam (Restoril) 15 mg HSPRN PRN ORAL Insomnia 03/06/17 22:15 03/13/17 22:14 03/07/17 00:33 Vancomycin HCl 1 ea 1 ea DAILY PRN MISC Per rx protocol 03/06/17 22:15 04/05/17 22:14 Vancomycin HCl/ Dextrose (Vancomycin/D5W) 275 ml @ 183.708 mls/hr Q24H IVPB 03/09/17 06:00 03/14/17 05:59 Allergies: Coded Allergies: HYDROCODONE (Verified Allergy, Unknown, 03/06/17) PENICILLINS (Unverified Allergy, Unknown, 03/06/17) SULFA (SULFONAMIDE ANTIBIOTICS) (Unverified Allergy, Unknown, 03/06/17) Uncoded Allergies: PENICILLIN (Allergy, Unknown, 03/06/17) SULFA (Allergy, Unknown, 03/06/17) ROS Limited/Unobtainable: No Constitutional: Reports: no symptoms HEENT: Reports: no symptoms Cardiovascular: Reports: no symptoms Respiratory: Reports: no symptoms Gastrointestinal/Abdominal: Reports: no symptoms Genitourinary: Reports: no symptoms Neurologic/Psychiatric: Reports: no symptoms Subjective 87 YO F admitted with altered mental status. Now UTI. Cover for Int Med-Dr Cloud. Objective Last Vital Signs Date Time Temp Pulse Resp B/P Pulse Ox O2 Delivery O2 Flow Rate FiO2 03/08/17 12:00 97.7 77 18 94/62 98 Nasal Cannula 2.0 03/08/17 07:58 32 Laboratory Tests Test 03/08/17 04:39 White Blood Count 8.6 K/UL (4.8-10.8) Red Blood Count 3.70 M/UL (4.20-5.40) L Hemoglobin 10.8 G/DL (12.0-16.0) L Hematocrit 34.2 % (37.0-47.0) L Mean Corpuscular Volume 92 FL (80-99) Mean Corpuscular Hemoglobin 29.3 PG (27.0-31.0) Mean Corpuscular Hemoglobin Concent 31.7 G/DL (32.0-36.0) L Red Cell Distribution Width 14.7 % (11.6-14.8) Platelet Count 180 K/UL (150-450) # Mean Platelet Volume 7.7 FL (6.5-10.1) Neutrophils (%) (Auto) 64.7 % (45.0-75.0) Lymphocytes (%) (Auto) 21.6 % (20.0-45.0) Monocytes (%) (Auto) 11.6 % (1.0-10.0) H Eosinophils (%) (Auto) 1.4 % (0.0-3.0) Basophils (%) (Auto) 0.7 % (0.0-2.0) Sodium Level 138 mEQ/L (135-145) Potassium Level 3.8 mEQ/L (3.4-4.9) Chloride Level 97 mEQ/L (98-107) L Carbon Dioxide Level 22 mEQ/L (20-30) Anion Gap 19 (5-15) H Blood Urea Nitrogen 34 mg/dL (7-23) H Creatinine 1.4 mg/dL (0.5-0.9) H Estimat Glomerular Filtration Rate mL/min (>60) Glucose Level 109 mg/dL (74-106) H Calcium Level 8.6 mg/dL (8.6-10.2) Troponin I < 0.30 ng/mL (<=0.30) Thyroid Stimulating Hormone (TSH) 3.790 uIU/mL (0.300-4.500) Random Vancomycin Level 8.2 ug/mL Hepatitis A IgM Antibody Pending Hepatitis B Surface Antigen Pending Hepatitis B Core IgM Antibody Pending Hepatitis C Antibody Pending Microbiology Date/Time Source Procedure Growth Status 03/06/17 20:15 Blood Blood Culture - Preliminary NO GROWTH AFTER 24 HOURS Resulted 03/06/17 20:00 Blood Blood Culture - Preliminary NO GROWTH AFTER 24 HOURS Resulted 03/06/17 09:20 Nasal Nares MRSA Culture - Final NO METHICILLIN RESISTANT STAPH AUREUS... Complete 03/06/17 19:45 Urine,Clean Catch Urine Culture - Preliminary Gram Negative Ramesh Resulted 03/07/17 00:00 Sacral Wound Gram Stain - Final Resulted 03/07/17 00:00 Wound Culture - Preliminary Gram Negative Ramesh Resulted 03/06/17 19:45 Rectum VRE Culture - Final NO VANCOMYCIN RESISTANT ENTEROCOCCUS ... Complete Intake and Output 03/07/17 03/08/17 19:00 07:00 Intake Total 800 ml 1175 ml Output Total 375 ml 500 ml Balance 425 ml 675 ml Intake Oral 240 ml IV Total 560 ml 1175 ml Output Urine Total 375 ml 500 ml Objective General: alert, cooperative, no distress, appears stated age Head: normocephalic, without obvious abnormality, atraumatic Eyes: conjunctivae/corneas clear. PERRL, EOM's intact Throat: lips, mucosa, and tongue normal. MMM Neck: supple, symmetrical, trachea midline, and no JVD Lungs: clear to auscultation bilaterally Heart: regular rate and rhythm, S1, S2 normal, no murmur, click, rub or gallop Abdomen: soft, non-tender, non-distended, bowel sounds normal; no masses or organomegaly Extremities: extremities normal, atraumatic, no cyanosis or edema Pulses: 2+ and symmetric Skin: skin color, texture, turgor normal; no rashes or lesions Neurologic: grossly normal, no focal deficits Assessment/Plan Problem List: (1) Renal failure (ARF), acute on chronic Assessment & Plan: Resolving on IV fluids. (2) Congestive heart failure (3) Hypothyroidism Assessment & Plan: Cont levoxyl. (4) Hypercholesteremia (5) Lumbar stenosis (6) Osteoporosis (7) UTI (urinary tract infection) Assessment & Plan: Gram neg ramesh. Cont aztreonam for now; await ID and Sens. See ID note. (8) ARF (acute renal failure) (9) Altered mental status Status: not improved KANCHAN JAMISON Mar 08, 2017 16:22
--- NOTE | 2017-03-08 17:46 | Pulmonology Progress Note ---
Assessment/Plan Assessment/Plan ASSESSMENT acute encephalopathy( likely due to infectious process) ARF possible sepsis UTI elevated troponin new onset of verbal unresponsiveness, lethargy(liekly due to underlying infection/UTI in the setting of treatment with opiates). mild cognitive impairment. 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 sacral decub st 4 POA L and R ear st 1 POA hypothyroidism moderate pulmonary HTN elevated transaminase PLAN OF CARE MALU CT head negative for acute pathology IVF abx , urine cx + GNR, blood cx preliminary negative ID follows renal US no hydro, exophytic 2.7 cm left renal mass versus physiologic dromedary hump. neuro eval appreciated serial troponin negative after the first with minimal elevation of 0.34 ECHO with EF 55% and RVSP of 51 c/w mdoerate pulmonary HTN O2 HHN prn DVT prophylaxis swallow eval PT/OT judicious use of narcotics TSH WNL, continue current dose of levothyroxine trend LFT, hep panel pending, abdominal US - no dilated ducts, shadowing gallbladder fossa may represent a stone filled gallbladder, versus shadowing from the duodenum will check CT A/P when creat better wound care as per wound nurse recommendation case discussed and evaluated by supervising physician Subjective Allergies: Coded Allergies: HYDROCODONE (Verified Allergy, Unknown, 03/06/17) PENICILLINS (Unverified Allergy, Unknown, 03/06/17) SULFA (SULFONAMIDE ANTIBIOTICS) (Unverified Allergy, Unknown, 03/06/17) Uncoded Allergies: PENICILLIN (Allergy, Unknown, 03/06/17) SULFA (Allergy, Unknown, 03/06/17) Subjective leukocytosis resolved, afebrile renal parameters with significant improvement last 2 troponin negative after 1st with minimal elevation-0.34 on O2 via NC no signs of respiratory distress Objective Last 24 Hour Vital Signs Date Time Temp Pulse Resp B/P Pulse Ox O2 Delivery O2 Flow Rate FiO2 03/08/17 16:00 97.9 82 18 125/69 98 Nasal Cannula 2.0 03/08/17 15:08 77 03/08/17 12:00 97.7 77 18 94/62 98 Nasal Cannula 2.0 03/08/17 11:55 68 03/08/17 08:00 97.7 77 20 102/65 90 Nasal Cannula 2.0 03/08/17 07:58 73 16 Nasal Cannula 3.0 32 03/08/17 07:58 Nasal Cannula 3.0 32 03/08/17 07:54 73 03/08/17 04:00 98.4 82 22 118/71 96 Nasal Cannula 2.0 03/08/17 04:00 86 03/08/17 00:00 97.9 86 20 125/69 98 Nasal Cannula 2.0 03/08/17 00:00 86 03/07/17 20:41 97.9 86 20 125/69 98 Nasal Cannula 2.0 03/07/17 20:00 86 03/07/17 19:18 Nasal Cannula 3.0 32 03/07/17 19:17 82 16 Nasal Cannula 3.0 98 Intake and Output 03/07/17 03/08/17 19:00 07:00 Intake Total 800 ml 1175 ml Output Total 375 ml 500 ml Balance 425 ml 675 ml Intake Oral 240 ml IV Total 560 ml 1175 ml Output Urine Total 375 ml 500 ml Objective General: awake, alert, cooperative, no acute distress, Head: NC/AT, sclera anicteric, O moist Neck: supple, trachea midline, no JVD Lungs: CTAB with moderate air entry Heart: regular rate and rhythm, SR on tele, no g/m/r Abdomen: soft, non-tender, non-distended, bowel sounds normal; Extremities: no c/c/e, muscle atrophy BLE Microbiology Date/Time Source Procedure Growth Status 03/06/17 20:15 Blood Blood Culture - Preliminary NO GROWTH AFTER 24 HOURS Resulted 03/06/17 20:00 Blood Blood Culture - Preliminary NO GROWTH AFTER 24 HOURS Resulted 03/06/17 09:20 Nasal Nares MRSA Culture - Final NO METHICILLIN RESISTANT STAPH AUREUS... Complete 03/06/17 19:45 Urine,Clean Catch Urine Culture - Preliminary Gram Negative Ramesh Resulted 03/07/17 00:00 Sacral Wound Gram Stain - Final Resulted 03/07/17 00:00 Wound Culture - Preliminary Gram Negative Ramesh Resulted 03/06/17 19:45 Rectum VRE Culture - Final NO VANCOMYCIN RESISTANT ENTEROCOCCUS ... Complete Laboratory Tests 03/08/17 04:39: White Blood Count 8.6, Red Blood Count 3.70L, Hemoglobin 10.8L, Hematocrit 34.2L , Mean Corpuscular Volume 92, Mean Corpuscular Hemoglobin 29.3, Mean Corpuscular Hemoglobin Concent 31.7L, Red Cell Distribution Width 14.7, Platelet Count 180#, Mean Platelet Volume 7.7, Neutrophils (%) (Auto) 64.7, Lymphocytes (%) (Auto) 21.6, Monocytes (%) (Auto) 11.6H, Eosinophils (%) (Auto) 1.4, Basophils (%) (Auto) 0.7, Sodium Level 138, Potassium Level 3.8, Chloride Level 97L, Carbon Dioxide Level 22, Anion Gap 19H, Blood Urea Nitrogen 34H, Creatinine 1.4H, Estimat Glomerular Filtration Rate , Glucose Level 109H, Calcium Level 8.6, Troponin I < 0.30, Thyroid Stimulating Hormone (TSH) 3.790, Random Vancomycin Level 8.2, Hepatitis A IgM Antibody [Pending], Hepatitis B Surface Antigen [Pending], Hepatitis B Core IgM Antibody [Pending], Hepatitis C Antibody [Pending] Current Medications Medications (Trade) Dose Ordered Sig/Augusto Route PRN Reason Start Time Stop Time Status Last Admin Dose Admin Acetaminophen (Tylenol) 650 mg Q4H PRN ORAL fever 03/06/17 22:15 04/05/17 22:14 Al Hydroxide/Mg Hydroxide (Mylanta II) 30 ml Q6H PRN ORAL dyspepsia 03/06/17 22:15 04/05/17 22:14 Albuterol/ Ipratropium (DuoNeb 0.5-3(2.5)mg/3ml) 3 ml EVERY 4 HOURS PRN HHN Shortness of Breath 03/06/17 22:15 03/11/17 22:14 Aztreonam/Sodium Chloride (Azactam/Sodium Chloride) 55 ml @ 110 mls/hr Q8H IVPB 03/07/17 08:00 03/14/17 07:59 03/08/17 16:44 Dextrose/Sodium Chloride (D5 0.45% NS) 1,000 ml @ 75 mls/hr [id number] IV 03/07/17 13:00 04/06/17 12:59 03/08/17 03:03 Escitalopram Oxalate (Lexapro) 5 mg DAILY ORAL 03/07/17 09:00 04/06/17 08:59 03/08/17 08:31 Heparin Sodium (Porcine) 5000 units 5,000 units EVERY 12 HOURS SUBQ 4/28/17 21:00 04/06/17 20:59 03/08/17 08:32 Levothyroxine Sodium (Synthroid) 75 mcg DAILY@0630 ORAL 03/07/17 06:30 04/06/17 06:29 03/08/17 07:22 Lidocaine 1 patch 1 patch DAILY TDERMAL 03/07/17 12:30 04/06/17 12:29 03/08/17 08:31 Mirtazapine (Remeron) 7.5 mg BEDTIME ORAL 03/07/17 21:00 04/06/17 20:59 03/07/17 21:29 Nitroglycerin (Ntg) 0.4 mg Q5M PRN SL Prn Chest Pain 03/06/17 22:15 04/05/17 22:14 Ondansetron HCl (Zofran) 4 mg Q6H PRN IVP Nausea & Vomiting 03/06/17 22:15 04/05/17 22:14 Polyethylene Glycol (Miralax) 17 gm DAILYPRN PRN ORAL Constipation 03/06/17 22:15 04/05/17 22:14 Temazepam (Restoril) 15 mg HSPRN PRN ORAL Insomnia 03/06/17 22:15 03/13/17 22:14 03/07/17 00:33 Vancomycin HCl 1 ea 1 ea DAILY PRN MISC Per rx protocol 03/06/17 22:15 04/05/17 22:14 Vancomycin HCl/ Dextrose (Vancomycin/D5W) 275 ml @ 183.708 mls/hr Q24H IVPB 03/09/17 06:00 03/14/17 05:59 Tatianna Thomas NP (Vanchtein) Mar 08, 2017 17:46
[2017-03-08 20:00] VITALS: BP 103/54
[2017-03-09] VITALS (8 sets, daily range): BP systolic 109–134; BP diastolic 64–78
--- NOTE | 2017-03-09 01:58 | Consultation ---
DATE OF CONSULTATION: 03/08/2017 HISTORY OF PRESENT ILLNESS: This is an 87-year-old female with a history of depression and multiple medical problems, who has been admitted to the hospital due to altered mental status. According to the daughter, the patient was found to be progressively weak and lethargic and confused and disoriented during the evaluation, which was on 03/06/2017. The patient was confused. She was not able to provide much history. She was disoriented and appeared that she was presenting with waxing waning consciousness and cognitive impairment. PAST PSYCHIATRIC HISTORY: Depression has been treated with antidepressant. PAST MEDICAL HISTORY: Significant for chronic lower back pain, spinal stenosis, osteoporosis, hyperlipidemia, hypothyroidism and chronic back pain. ALLERGIES: Hydrocodone, penicillin and sulfa drugs. MEDICATIONS: At home include simvastatin, , Remeron 7.5 mg h.s., temazepam, fentanyl patch, and Synthroid. SUBSTANCE ABUSE HISTORY: No history of illicit drug use or alcohol. SOCIAL HISTORY: The patient lives in a shelter. Daughter is involved in her life. FAMILY HISTORY: Noncontributory. MENTAL STATUS EXAMINATION: The patient is alert and oriented to self and place. However, she has been presenting with waxing waning consciousness during the gait. Mood is anxious. Affect is constricted. Congruent mood. Thought process, there is a paucity of thought content. Thought content, there is no suicidal or homicidal ideations. Cognition is impaired. ASSESSMENT: [place] I Major depressive disorder, delirium due to general medical condition possibly urinary tract infection, other infections and cognitive impairment. [place] II Deferred. [place] III As above. [place] IV Low. [place] V Global assessment of functioning is 20. PLAN: 1. The patient will be continued on Remeron 7.5 mg h.s. 2. We will continue Lexapro 5 mg q.a.m. 3. We will continue to follow and readjust the medications. Vimal Funes M.D. DR: SHAKIR JOB#: [id number] CC:
--- NOTE | 2017-03-09 02:08 | Progress Note ---
DATE: 03/08/2017 SUBJECTIVE: The patient is doing well. More alert. Less anxiety. Cognition is improved. No waxing and waning consciousness and compliant with medication. MENTAL STATUS EXAMINATION: The patient is alert and oriented x3. Mood is slightly anxious. Affect is constricted. Congruent mood. Thought process, there is some breakoff. Thought content, no suicidal or homicidal ideation. Cognition is impaired. ASSESSMENT: 1. Major depressive disorder. 2. Anxiety disorder. PLAN: 1. The patient will be continued on Remeron and Lexapro. 2. Provide the patient with supportive therapy and reality orientation. Vimal Funes M.D. DR: SHAKIR JOB#: [id number] CC:
[2017-03-09] MEDS: D5 1/2NS 1,000 ML IV SCH ×2 (05:00→17:57)
[2017-03-09 05:32] LABS: BASOPHILS % (AUTO) 1.1 % (0.0-2.0); EOSINOPHILS % (AUTO) 2.1 % (0.0-3.0); MEAN CORPUSCULAR HEMOGLOBIN 30.1 PG (27.0-31.0); MEAN CORPUSCULAR HGB CONC 32.7 G/DL (32.0-36.0); MEAN CORPUSCULAR VOLUME 92 FL (80-99); MEAN PLATELET VOLUME 7.6 FL (6.5-10.1); NEUTROPHILS % (AUTO) 61.8 % (45.0-75.0); PLATELET COUNT 166 K/UL (150-450); RED CELL DISTRIBUTION WIDTH 13.8 % (11.6-14.8); WHITE BLOOD COUNT 7.7 K/UL (4.8-10.8)
[2017-03-09] MEDS ORDERED: Vancomycin 750mg/D5W 275ml IVPB SCH ×2 (06:00)
[2017-03-09 06:03] LABS: ANION GAP 14 (5-15); CALCIUM 8.4 mg/dL (8.6-10.2); CARBON DIOXIDE 26 mEQ/L (20-30); CHLORIDE 100 mEQ/L (98-107); CREATININE 1.1 mg/dL (0.5-0.9); HEMOLYSIS 3; POTASSIUM 3.6 mEQ/L (3.4-4.9); SODIUM 140 mEQ/L (135-145)
[2017-03-09 06:06] LABS: TROPONIN I < 0.30 ng/mL (<=0.30)
[2017-03-09] MEDS: Aztreonam Inj 0.5 GM in NS 55 ML IVPB SCH ×2 (09:00→16:01)
[2017-03-09] MEDS: Escitalopram Oxalate 5mg tab ORAL SCH (09:00)
[2017-03-09] MEDS: Heparin 5000 units/ml inj SUBQ SCH ×2 (09:00→20:47)
[2017-03-09] MEDS ORDERED: D5 1/2NS 1000ml IV ONE (09:53)
--- NOTE | 2017-03-09 10:01 | Consultation ---
History of Present Illness General Date patient seen: Mar 09, 2017 Present Illness Allergies: Coded Allergies: HYDROCODONE (Verified Allergy, Unknown, 03/06/17) PENICILLINS (Unverified Allergy, Unknown, 03/06/17) SULFA (SULFONAMIDE ANTIBIOTICS) (Unverified Allergy, Unknown, 03/06/17) Uncoded Allergies: PENICILLIN (Allergy, Unknown, 03/06/17) SULFA (Allergy, Unknown, 03/06/17) Medication History Scheduled Ascorbic Acid* (Ascorbic Acid*), 250 MG ORAL DAILY, (Reported) Bisacodyl* (Dulcolax*), 5 MG ORAL DAILY, (Reported) Ergocalciferol (Vitamin D2)* (Vitamin D*), 50,000 UNIT ORAL ONCE A WEEK, ( Reported) Escitalopram Oxalate* (Lexapro*), 5 MG ORAL DAILY, (Reported) Fentanyl 50MCG Patch (Fentanyl 50MCG Patch*), 1 PATCH TOPIC EVERY 72 HOURS, ( Reported) Furosemide* (Lasix*), 40 MG ORAL TWICE A DAY, (Reported) Gabapentin* (Gabapentin*), 200 MG ORAL BEDTIME, (Reported) Levothyroxine Sodium* (Synthroid*), 75 MCG ORAL DAILY, (Reported) Magnesium Hydroxide* (Milk Of Magnesia*), 30 ML ORAL DAILY, (Reported) Mirtazapine* (Remeron*), 7.5 MG ORAL BEDTIME, (Reported) Multivitamins* (Multivitamins*), 1 TAB ORAL DAILY, (Reported) Nystatin* (Nystatin*), 1 APPLIC TOPIC THREE TIMES A DAY, (Reported) Sennosides/Docusate Sodium (Rola-Colace Tablet), 2 EACH PO DAILY, (Reported) Simvastatin (Zocor), 20 MG ORAL BEDTIME, (Reported) Temazepam (Temazepam*), 15 MG ORAL BEDTIME, (Reported) [Cranberry Pill], 2 CAP ORAL DAILY, (Reported) [Mylanta], 30 ML PO EVERY 6 HOURS, (Reported) Scheduled PRN Acetaminophen With Codeine (T#3) (Tylenol #3 Tab*), 1 TAB ORAL Q4H PRN for For Pain, (Reported) Acetaminophen* (Tylenol Extra Strength*), 500 MG ORAL Q6H PRN for Mild Pain/ Temp > 100.5, (Reported) Benzocaine/Menthol (Cepacol Sore Throat Lozenge), 1 EACH MM EVERY 4 HOURS PRN for P, (Reported) Dextromethorphan Hb/Doxylamine (Robitussin Nighttime Cough Dm), 10 ML PO EVERY 4 HOURS PRN for For Cough, (Reported) Miscellaneous Medications Lidocaine (Lidoderm), 1 PATCH TOPIC, (Reported) Loperamide HCl (Imodium A-D), 2 MG PO, (Reported) Patient History Healthcare decision maker Resuscitation status Full Code Advanced Directive on File Physical Exam Last 24 Hour Vital Signs Date Time Temp Pulse Resp B/P Pulse Ox O2 Delivery O2 Flow Rate FiO2 03/09/17 08:58 98.2 81 20 134/64 99 Nasal Cannula 03/09/17 04:00 98.4 76 22 116/65 100 Nasal Cannula 3.0 03/09/17 04:00 70 03/09/17 00:29 98.1 75 20 113/78 99 Nasal Cannula 3.0 03/09/17 00:00 76 03/08/17 20:00 82 03/08/17 20:00 98.8 85 20 103/54 95 Nasal Cannula 3.0 03/08/17 19:19 85 20 Nasal Cannula 3.0 32 03/08/17 19:19 Nasal Cannula 3.0 32 03/08/17 16:00 97.9 82 18 125/69 98 Nasal Cannula 2.0 03/08/17 15:08 77 03/08/17 12:00 97.7 77 18 94/62 98 Nasal Cannula 2.0 03/08/17 11:55 68 Intake and Output 03/08/17 03/09/17 19:00 07:00 Intake Total 1206.250 ml 1073.708 ml Output Total 650 ml 500 ml Balance 556.250 ml 573.708 ml Intake Oral 240 ml IV Total 966.250 ml 873.708 ml Other 200 ml Output Urine Total 650 ml 500 ml Laboratory Tests Test 03/09/17 04:09 White Blood Count 7.7 K/UL (4.8-10.8) Red Blood Count 3.20 M/UL (4.20-5.40) L Hemoglobin 9.6 G/DL (12.0-16.0) L Hematocrit 29.5 % (37.0-47.0) L Mean Corpuscular Volume 92 FL (80-99) Mean Corpuscular Hemoglobin 30.1 PG (27.0-31.0) Mean Corpuscular Hemoglobin Concent 32.7 G/DL (32.0-36.0) Red Cell Distribution Width 13.8 % (11.6-14.8) Platelet Count 166 K/UL (150-450) Mean Platelet Volume 7.6 FL (6.5-10.1) Neutrophils (%) (Auto) 61.8 % (45.0-75.0) Lymphocytes (%) (Auto) 22.0 % (20.0-45.0) Monocytes (%) (Auto) 13.0 % (1.0-10.0) H Eosinophils (%) (Auto) 2.1 % (0.0-3.0) Basophils (%) (Auto) 1.1 % (0.0-2.0) Sodium Level 140 mEQ/L (135-145) Potassium Level 3.6 mEQ/L (3.4-4.9) Chloride Level 100 mEQ/L (98-107) Carbon Dioxide Level 26 mEQ/L (20-30) Anion Gap 14 (5-15) Blood Urea Nitrogen 25 mg/dL (7-23) H Creatinine 1.1 mg/dL (0.5-0.9) H Estimat Glomerular Filtration Rate mL/min (>60) Glucose Level 107 mg/dL (74-106) H Calcium Level 8.4 mg/dL (8.6-10.2) L Troponin I < 0.30 ng/mL (<=0.30) Height (Feet): 5 Height (Inches): 4.00 Weight (Pounds): 170 Medications Current Medications Medications (Trade) Dose Ordered Sig/Augusto Route PRN Reason Start Time Stop Time Status Last Admin Dose Admin Acetaminophen (Tylenol) 650 mg Q4H PRN ORAL fever 03/06/17 22:15 04/05/17 22:14 Al Hydroxide/Mg Hydroxide (Mylanta II) 30 ml Q6H PRN ORAL dyspepsia 03/06/17 22:15 04/05/17 22:14 Albuterol/ Ipratropium (DuoNeb 0.5-3(2.5)mg/3ml) 3 ml EVERY 4 HOURS PRN HHN Shortness of Breath 03/06/17 22:15 03/11/17 22:14 Aztreonam/Sodium Chloride (Azactam/Sodium Chloride) 55 ml @ 110 mls/hr Q8H IVPB 03/07/17 08:00 03/14/17 07:59 03/09/17 09:00 Dextrose/Sodium Chloride (D5 0.45% NS) 1,000 ml @ 75 mls/hr [id number] IV 03/07/17 13:00 04/06/17 12:59 03/08/17 17:45 Escitalopram Oxalate (Lexapro) 5 mg DAILY ORAL 03/07/17 09:00 04/06/17 08:59 03/09/17 09:00 Heparin Sodium (Porcine) 5000 units 5,000 units EVERY 12 HOURS SUBQ 03/07/17 21:00 04/06/17 20:59 03/09/17 09:00 Levothyroxine Sodium (Synthroid) 75 mcg DAILY@0630 ORAL 03/07/17 06:30 04/06/17 06:29 03/09/17 06:07 Lidocaine 1 patch 1 patch DAILY TDERMAL 03/07/17 12:30 04/06/17 12:29 03/08/17 08:31 Mirtazapine (Remeron) 7.5 mg BEDTIME ORAL 03/07/17 21:00 04/06/17 20:59 03/08/17 20:49 Nitroglycerin (Ntg) 0.4 mg Q5M PRN SL Prn Chest Pain 03/06/17 22:15 04/05/17 22:14 Ondansetron HCl (Zofran) 4 mg Q6H PRN IVP Nausea & Vomiting 03/06/17 22:15 04/05/17 22:14 Polyethylene Glycol (Miralax) 17 gm DAILYPRN PRN ORAL Constipation 03/06/17 22:15 04/05/17 22:14 Temazepam (Restoril) 15 mg HSPRN PRN ORAL Insomnia 03/06/17 22:15 03/13/17 22:14 03/08/17 20:49 Vancomycin HCl 1 ea 1 ea DAILY PRN MISC Per rx protocol 03/06/17 22:15 04/05/17 22:14 Vancomycin HCl/ Dextrose (Vancomycin/D5W) 275 ml @ 183.708 mls/hr Q24H IVPB 03/09/17 06:00 03/14/17 05:59 03/09/17 05:14 Assessment/Plan Assessment/Plan (1) Alerted Mental status (2) UTI (3) Lumbar spinal stenosis (4) Lumbago (5) Sacral decubitus ulcer seen dictated JUDY VOSS Mar 09, 2017 10:01
--- NOTE | 2017-03-09 12:27 | Internal Med Progress Note ---
Subjective Date of Service: Mar 09, 2017 Physician Name JamisonKanchan Attending Physician Lv Cloud MD Current Medications Medications (Trade) Dose Ordered Sig/Augusto Route PRN Reason Start Time Stop Time Status Last Admin Dose Admin Acetaminophen (Tylenol) 650 mg Q4H PRN ORAL fever 03/06/17 22:15 04/05/17 22:14 Acetaminophen/ Codeine Phosphate (Tylenol #3) 1 tab Q4H PRN ORAL severe pain 03/09/17 10:00 03/16/17 09:59 Al Hydroxide/Mg Hydroxide (Mylanta II) 30 ml Q6H PRN ORAL dyspepsia 03/06/17 22:15 04/05/17 22:14 Albuterol/ Ipratropium (DuoNeb 0.5-3(2.5)mg/3ml) 3 ml EVERY 4 HOURS PRN HHN Shortness of Breath 03/06/17 22:15 03/11/17 22:14 Aztreonam/Sodium Chloride (Azactam/Sodium Chloride) 55 ml @ 110 mls/hr Q8H IVPB 03/07/17 08:00 03/14/17 07:59 03/09/17 09:00 Dextrose/Sodium Chloride (D5 0.45% NS) 1,000 ml @ 75 mls/hr [id number] IV 03/07/17 13:00 04/06/17 12:59 03/08/17 17:45 Escitalopram Oxalate (Lexapro) 5 mg DAILY ORAL 03/07/17 09:00 04/06/17 08:59 03/09/17 09:00 Heparin Sodium (Porcine) 5000 units 5,000 units EVERY 12 HOURS SUBQ 03/07/17 21:00 04/06/17 20:59 03/09/17 09:00 Levothyroxine Sodium (Synthroid) 75 mcg DAILY@0630 ORAL 03/07/17 06:30 04/06/17 06:29 03/09/17 06:07 Lidocaine 1 patch 1 patch DAILY TDERMAL 03/07/17 12:30 04/06/17 12:29 03/09/17 09:59 Mirtazapine (Remeron) 7.5 mg BEDTIME ORAL 03/07/17 21:00 04/06/17 20:59 03/08/17 20:49 Nitroglycerin (Ntg) 0.4 mg Q5M PRN SL Prn Chest Pain 03/06/17 22:15 04/05/17 22:14 Ondansetron HCl (Zofran) 4 mg Q6H PRN IVP Nausea & Vomiting 03/06/17 22:15 04/05/17 22:14 Polyethylene Glycol (Miralax) 17 gm DAILYPRN PRN ORAL Constipation 03/06/17 22:15 04/05/17 22:14 Temazepam (Restoril) 15 mg HSPRN PRN ORAL Insomnia 03/06/17 22:15 03/13/17 22:14 03/08/17 20:49 Vancomycin HCl 1 ea 1 ea DAILY PRN MISC Per rx protocol 03/06/17 22:15 04/05/17 22:14 Vancomycin HCl/ Dextrose (Vancomycin/D5W) 275 ml @ 183.708 mls/hr Q24H IVPB 03/09/17 06:00 03/14/17 05:59 03/09/17 05:14 Allergies: Coded Allergies: HYDROCODONE (Verified Allergy, Unknown, 03/06/17) PENICILLINS (Unverified Allergy, Unknown, 03/06/17) SULFA (SULFONAMIDE ANTIBIOTICS) (Unverified Allergy, Unknown, 03/06/17) Uncoded Allergies: PENICILLIN (Allergy, Unknown, 03/06/17) SULFA (Allergy, Unknown, 03/06/17) ROS Limited/Unobtainable: Yes Subjective 87 YO F admitted with altered mental status. Now UTI. Cover for Int Med-Dr Cloud. Objective Last Vital Signs Date Time Temp Pulse Resp B/P Pulse Ox O2 Delivery O2 Flow Rate FiO2 03/09/17 08:58 98.2 81 20 134/64 99 Nasal Cannula 03/09/17 08:55 3.0 32 Laboratory Tests Test 03/09/17 04:09 White Blood Count 7.7 K/UL (4.8-10.8) Red Blood Count 3.20 M/UL (4.20-5.40) L Hemoglobin 9.6 G/DL (12.0-16.0) L Hematocrit 29.5 % (37.0-47.0) L Mean Corpuscular Volume 92 FL (80-99) Mean Corpuscular Hemoglobin 30.1 PG (27.0-31.0) Mean Corpuscular Hemoglobin Concent 32.7 G/DL (32.0-36.0) Red Cell Distribution Width 13.8 % (11.6-14.8) Platelet Count 166 K/UL (150-450) Mean Platelet Volume 7.6 FL (6.5-10.1) Neutrophils (%) (Auto) 61.8 % (45.0-75.0) Lymphocytes (%) (Auto) 22.0 % (20.0-45.0) Monocytes (%) (Auto) 13.0 % (1.0-10.0) H Eosinophils (%) (Auto) 2.1 % (0.0-3.0) Basophils (%) (Auto) 1.1 % (0.0-2.0) Sodium Level 140 mEQ/L (135-145) Potassium Level 3.6 mEQ/L (3.4-4.9) Chloride Level 100 mEQ/L (98-107) Carbon Dioxide Level 26 mEQ/L (20-30) Anion Gap 14 (5-15) Blood Urea Nitrogen 25 mg/dL (7-23) H Creatinine 1.1 mg/dL (0.5-0.9) H Estimat Glomerular Filtration Rate mL/min (>60) Glucose Level 107 mg/dL (74-106) H Calcium Level 8.4 mg/dL (8.6-10.2) L Troponin I < 0.30 ng/mL (<=0.30) Microbiology Date/Time Source Procedure Growth Status 03/06/17 20:15 Blood Blood Culture - Preliminary NO GROWTH AFTER 48 HOURS Resulted 03/06/17 20:00 Blood Blood Culture - Preliminary NO GROWTH AFTER 48 HOURS Resulted 03/07/17 09:20 Nasal Nares MRSA Culture - Final NO METHICILLIN RESISTANT STAPH AUREUS... Complete 03/06/17 19:45 Urine,Clean Catch Urine Culture - Final Escherichia Coli Complete 03/07/17 00:00 Sacral Wound Gram Stain - Final Resulted 03/07/17 00:00 Wound Culture - Preliminary Escherichia Coli Gram Negative Ramesh Resulted 03/06/17 19:45 Rectum VRE Culture - Final NO VANCOMYCIN RESISTANT ENTEROCOCCUS ... Complete Intake and Output 03/08/17 03/09/17 19:00 07:00 Intake Total 1206.250 ml 1073.708 ml Output Total 650 ml 500 ml Balance 556.250 ml 573.708 ml Intake Oral 240 ml IV Total 966.250 ml 873.708 ml Other 200 ml Output Urine Total 650 ml 500 ml Objective General: alert, cooperative, no distress, appears stated age Head: normocephalic, without obvious abnormality, atraumatic Eyes: conjunctivae/corneas clear. PERRL, EOM's intact Throat: lips, mucosa, and tongue normal. MMM Neck: supple, symmetrical, trachea midline, and no JVD Lungs: clear to auscultation bilaterally Heart: regular rate and rhythm, S1, S2 normal, no murmur, click, rub or gallop Abdomen: soft, non-tender, non-distended, bowel sounds normal; no masses or organomegaly Extremities: extremities normal, atraumatic, no cyanosis or edema Pulses: 2+ and symmetric Skin: skin color, texture, turgor normal; no rashes or lesions Neurologic: grossly normal, no focal deficits Assessment/Plan Problem List: (1) Renal failure (ARF), acute on chronic Assessment & Plan: Resolving on IV fluids. (2) Congestive heart failure (3) Hypothyroidism Assessment & Plan: Cont levoxyl. (4) Hypercholesteremia (5) Lumbar stenosis (6) Osteoporosis (7) UTI (urinary tract infection) Assessment & Plan: E. Coli. Cont aztreonam - See ID note. (8) ARF (acute renal failure) (9) Altered mental status Status: not improved KANCHAN JAMISON Mar 09, 2017 12:27
--- NOTE | 2017-03-09 12:58 | Infectious Diseases Prog Note ---
Assessment/Plan Assessment/Plan A; Sepsis AMS UTI with E. coli Acute renal Failure Anemia P: Continue Azactam, discontinue Vancomycin Subjective ROS Limited/Unobtainable: No Constitutional: Reports: no symptoms Respiratory: Reports: no symptoms Gastrointestinal/Abdominal: Reports: no symptoms Genitourinary: Reports: no symptoms Allergies: Coded Allergies: HYDROCODONE (Verified Allergy, Unknown, 03/06/17) PENICILLINS (Unverified Allergy, Unknown, 03/06/17) SULFA (SULFONAMIDE ANTIBIOTICS) (Unverified Allergy, Unknown, 03/06/17) Uncoded Allergies: PENICILLIN (Allergy, Unknown, 03/06/17) SULFA (Allergy, Unknown, 03/06/17) Objective Vital Signs Last 24 Hour Vital Signs Date Time Temp Pulse Resp B/P Pulse Ox O2 Delivery O2 Flow Rate FiO2 03/09/17 08:58 98.2 81 20 134/64 99 Nasal Cannula 03/09/17 08:55 Nasal Cannula 3.0 32 03/09/17 08:00 67 03/09/17 07:55 83 20 Nasal Cannula 3.0 32 03/09/17 04:00 98.4 76 22 116/65 100 Nasal Cannula 3.0 03/09/17 04:00 70 03/09/17 00:29 98.1 75 20 113/78 99 Nasal Cannula 3.0 03/09/17 00:00 76 03/08/17 20:00 82 03/08/17 20:00 98.8 85 20 103/54 95 Nasal Cannula 3.0 03/08/17 19:19 85 20 Nasal Cannula 3.0 32 03/08/17 19:19 Nasal Cannula 3.0 32 03/08/17 16:00 97.9 82 18 125/69 98 Nasal Cannula 2.0 03/08/17 15:08 77 Height (Feet): 5 Height (Inches): 4.00 Weight (Pounds): 170 General Appearance: no acute distress HEENT: mucous membranes moist Respiratory/Chest: lungs clear Cardiovascular: normal rate Abdomen: soft, non tender Extremities: no edema Neurologic/Psychiatric: alert, responsive Microbiology Date/Time Source Procedure Growth Status 03/06/17 20:15 Blood Blood Culture - Preliminary NO GROWTH AFTER 48 HOURS Resulted 03/06/17 20:00 Blood Blood Culture - Preliminary NO GROWTH AFTER 48 HOURS Resulted 03/07/17 09:20 Nasal Nares MRSA Culture - Final NO METHICILLIN RESISTANT STAPH AUREUS... Complete 03/06/17 19:45 Urine,Clean Catch Urine Culture - Final Escherichia Coli Complete 03/07/17 00:00 Sacral Wound Gram Stain - Final Resulted 03/07/17 00:00 Wound Culture - Preliminary Escherichia Coli Gram Negative Ramesh Resulted 03/06/17 19:45 Rectum VRE Culture - Final NO VANCOMYCIN RESISTANT ENTEROCOCCUS ... Complete Laboratory Tests Test 03/09/17 04:09 White Blood Count 7.7 K/UL (4.8-10.8) Red Blood Count 3.20 M/UL (4.20-5.40) L Hemoglobin 9.6 G/DL (12.0-16.0) L Hematocrit 29.5 % (37.0-47.0) L Mean Corpuscular Volume 92 FL (80-99) Mean Corpuscular Hemoglobin 30.1 PG (27.0-31.0) Mean Corpuscular Hemoglobin Concent 32.7 G/DL (32.0-36.0) Red Cell Distribution Width 13.8 % (11.6-14.8) Platelet Count 166 K/UL (150-450) Mean Platelet Volume 7.6 FL (6.5-10.1) Neutrophils (%) (Auto) 61.8 % (45.0-75.0) Lymphocytes (%) (Auto) 22.0 % (20.0-45.0) Monocytes (%) (Auto) 13.0 % (1.0-10.0) H Eosinophils (%) (Auto) 2.1 % (0.0-3.0) Basophils (%) (Auto) 1.1 % (0.0-2.0) Sodium Level 140 mEQ/L (135-145) Potassium Level 3.6 mEQ/L (3.4-4.9) Chloride Level 100 mEQ/L (98-107) Carbon Dioxide Level 26 mEQ/L (20-30) Anion Gap 14 (5-15) Blood Urea Nitrogen 25 mg/dL (7-23) H Creatinine 1.1 mg/dL (0.5-0.9) H Estimat Glomerular Filtration Rate mL/min (>60) Glucose Level 107 mg/dL (74-106) H Calcium Level 8.4 mg/dL (8.6-10.2) L Troponin I < 0.30 ng/mL (<=0.30) Current Medications Medications (Trade) Dose Ordered Sig/Augusto Route PRN Reason Start Time Stop Time Status Last Admin Dose Admin Acetaminophen (Tylenol) 650 mg Q4H PRN ORAL fever 03/06/17 22:15 04/05/17 22:14 Acetaminophen/ Codeine Phosphate (Tylenol #3) 1 tab Q4H PRN ORAL severe pain 03/09/17 10:00 03/16/17 09:59 Al Hydroxide/Mg Hydroxide (Mylanta II) 30 ml Q6H PRN ORAL dyspepsia 03/06/17 22:15 04/05/17 22:14 Albuterol/ Ipratropium (DuoNeb 0.5-3(2.5)mg/3ml) 3 ml EVERY 4 HOURS PRN HHN Shortness of Breath 03/06/17 22:15 03/11/17 22:14 Aztreonam/Sodium Chloride (Azactam/Sodium Chloride) 55 ml @ 110 mls/hr Q8H IVPB 03/07/17 08:00 03/14/17 07:59 03/09/17 09:00 Dextrose/Sodium Chloride (D5 0.45% NS) 1,000 ml @ 75 mls/hr [id number] IV 03/07/17 13:00 04/06/17 12:59 03/08/17 17:45 Escitalopram Oxalate (Lexapro) 5 mg DAILY ORAL 03/07/17 09:00 04/06/17 08:59 03/09/17 09:00 Heparin Sodium (Porcine) 5000 units 5,000 units EVERY 12 HOURS SUBQ 03/07/17 21:00 04/06/17 20:59 03/09/17 09:00 Levothyroxine Sodium (Synthroid) 75 mcg DAILY@0630 ORAL 03/07/17 06:30 04/06/17 06:29 03/09/17 06:07 Lidocaine 1 patch 1 patch DAILY TDERMAL 03/07/17 12:30 04/06/17 12:29 03/09/17 09:59 Mirtazapine (Remeron) 7.5 mg BEDTIME ORAL 03/07/17 21:00 04/06/17 20:59 03/08/17 20:49 Nitroglycerin (Ntg) 0.4 mg Q5M PRN SL Prn Chest Pain 03/06/17 22:15 04/05/17 22:14 Ondansetron HCl (Zofran) 4 mg Q6H PRN IVP Nausea & Vomiting 03/06/17 22:15 04/05/17 22:14 Polyethylene Glycol (Miralax) 17 gm DAILYPRN PRN ORAL Constipation 03/06/17 22:15 04/05/17 22:14 Temazepam (Restoril) 15 mg HSPRN PRN ORAL Insomnia 03/06/17 22:15 03/13/17 22:14 03/08/17 20:49 Vancomycin HCl 1 ea 1 ea DAILY PRN MISC Per rx protocol 03/06/17 22:15 04/05/17 22:14 Vancomycin HCl/ Dextrose (Vancomycin/D5W) 275 ml @ 183.708 mls/hr Q24H IVPB 03/09/17 06:00 03/14/17 05:59 03/09/17 05:14 MARIANNE HAWKINS Mar 09, 2017 12:58
--- NOTE | 2017-03-09 13:51 | Pulmonology Progress Note ---
Assessment/Plan Assessment/Plan ASSESSMENT acute encephalopathy( likely due to infectious process) ARF possible sepsis UTI elevated troponin new onset of verbal unresponsiveness, lethargy(liekly due to underlying infection/UTI in the setting of treatment with opiates). mild cognitive impairment. 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 sacral decub st 4 POA L and R ear st 1 POA hypothyroidism moderate pulmonary HTN elevated transaminase PLAN OF CARE MALU CT head negative for acute pathology IVF abx , urine cx + GNR, E coli, blood cx preliminary negative ID follows renal US no hydro, exophytic 2.7 cm left renal mass versus physiologic dromedary hump. neuro eval appreciated serial troponin negative after the first with minimal elevation of 0.34 ECHO with EF 55% and RVSP of 51 c/w moderate pulmonary HTN O2 HHN prn DVT prophylaxis swallow eval PT/OT judicious use of narcotics TSH WNL, continue current dose of levothyroxine trend LFT, hep panel pending, abdominal US - no dilated ducts, shadowing gallbladder fossa may represent a stone filled gallbladder, versus shadowing from the duodenum will check CT A/P when creat down to normal wound care as per wound nurse recommendation case discussed and evaluated by supervising physician Subjective Allergies: Coded Allergies: HYDROCODONE (Verified Allergy, Unknown, 03/06/17) PENICILLINS (Unverified Allergy, Unknown, 03/06/17) SULFA (SULFONAMIDE ANTIBIOTICS) (Unverified Allergy, Unknown, 03/06/17) Uncoded Allergies: PENICILLIN (Allergy, Unknown, 03/06/17) SULFA (Allergy, Unknown, 03/06/17) Subjective leukocytosis resolved, afebrile renal parameters with significant improvement creat down to 1.1 last 2 troponin negative after 1st with minimal elevation-0.34 on O2 via NC no signs of respiratory distress Objective Last 24 Hour Vital Signs Date Time Temp Pulse Resp B/P Pulse Ox O2 Delivery O2 Flow Rate FiO2 03/09/17 12:00 98.1 84 18 114/70 97 Nasal Cannula 03/09/17 08:58 98.2 81 20 134/64 99 Nasal Cannula 03/09/17 08:55 Nasal Cannula 3.0 32 03/09/17 08:00 67 03/09/17 07:55 83 20 Nasal Cannula 3.0 32 03/09/17 04:00 98.4 76 22 116/65 100 Nasal Cannula 3.0 03/09/17 04:00 70 03/09/17 00:29 98.1 75 20 113/78 99 Nasal Cannula 3.0 03/09/17 00:00 76 03/08/17 20:00 82 03/08/17 20:00 98.8 85 20 103/54 95 Nasal Cannula 3.0 03/08/17 19:19 85 20 Nasal Cannula 3.0 32 03/08/17 19:19 Nasal Cannula 3.0 32 03/08/17 16:00 97.9 82 18 125/69 98 Nasal Cannula 2.0 03/08/17 15:08 77 Intake and Output 03/08/17 03/09/17 19:00 07:00 Intake Total 1206.250 ml 1073.708 ml Output Total 650 ml 500 ml Balance 556.250 ml 573.708 ml Intake Oral 240 ml IV Total 966.250 ml 873.708 ml Other 200 ml Output Urine Total 650 ml 500 ml Objective General: awake, alert, cooperative, no acute distress, Head: NC/AT, sclera anicteric, O moist Neck: supple, trachea midline, no JVD Lungs: CTAB with moderate air entry Heart: regular rate and rhythm, SR on tele, no g/m/r Abdomen: soft, non-tender, non-distended, bowel sounds normal; Extremities: no c/c/e, muscle atrophy BLE Microbiology Date/Time Source Procedure Growth Status 03/06/17 20:15 Blood Blood Culture - Preliminary NO GROWTH AFTER 48 HOURS Resulted 03/06/17 20:00 Blood Blood Culture - Preliminary NO GROWTH AFTER 48 HOURS Resulted 03/07/17 09:20 Nasal Nares MRSA Culture - Final NO METHICILLIN RESISTANT STAPH AUREUS... Complete 03/06/17 19:45 Urine,Clean Catch Urine Culture - Final Escherichia Coli Complete 03/07/17 00:00 Sacral Wound Gram Stain - Final Resulted 03/07/17 00:00 Wound Culture - Preliminary Escherichia Coli Gram Negative Ramesh Resulted 03/06/17 19:45 Rectum VRE Culture - Final NO VANCOMYCIN RESISTANT ENTEROCOCCUS ... Complete Laboratory Tests 03/09/17 04:09: White Blood Count 7.7, Red Blood Count 3.20L, Hemoglobin 9.6L, Hematocrit 29.5L , Mean Corpuscular Volume 92, Mean Corpuscular Hemoglobin 30.1, Mean Corpuscular Hemoglobin Concent 32.7, Red Cell Distribution Width 13.8, Platelet Count 166, Mean Platelet Volume 7.6, Neutrophils (%) (Auto) 61.8, Lymphocytes (% ) (Auto) 22.0, Monocytes (%) (Auto) 13.0H, Eosinophils (%) (Auto) 2.1, Basophils (%) (Auto) 1.1, Sodium Level 140, Potassium Level 3.6, Chloride Level 100, Carbon Dioxide Level 26, Anion Gap 14, Blood Urea Nitrogen 25H, Creatinine 1.1H, Estimat Glomerular Filtration Rate , Glucose Level 107H, Calcium Level 8.4L, Troponin I < 0.30 Current Medications Medications (Trade) Dose Ordered Sig/Augusto Route PRN Reason Start Time Stop Time Status Last Admin Dose Admin Acetaminophen (Tylenol) 650 mg Q4H PRN ORAL fever 03/06/17 22:15 04/05/17 22:14 Acetaminophen/ Codeine Phosphate (Tylenol #3) 1 tab Q4H PRN ORAL severe pain 03/09/17 10:00 03/16/17 09:59 Al Hydroxide/Mg Hydroxide (Mylanta II) 30 ml Q6H PRN ORAL dyspepsia 03/06/17 22:15 04/05/17 22:14 Albuterol/ Ipratropium (DuoNeb 0.5-3(2.5)mg/3ml) 3 ml EVERY 4 HOURS PRN HHN Shortness of Breath 03/06/17 22:15 03/11/17 22:14 Aztreonam/Sodium Chloride (Azactam/Sodium Chloride) 55 ml @ 110 mls/hr Q8H IVPB 03/07/17 08:00 03/14/17 07:59 03/09/17 09:00 Dextrose/Sodium Chloride (D5 0.45% NS) 1,000 ml @ 75 mls/hr [id number] IV 03/07/17 13:00 04/06/17 12:59 03/08/17 17:45 Escitalopram Oxalate (Lexapro) 5 mg DAILY ORAL 03/07/17 09:00 04/06/17 08:59 03/09/17 09:00 Heparin Sodium (Porcine) 5000 units 5,000 units EVERY 12 HOURS SUBQ 03/07/17 21:00 04/06/17 20:59 03/09/17 09:00 Levothyroxine Sodium (Synthroid) 75 mcg DAILY@0630 ORAL 03/07/17 06:30 04/06/17 06:29 03/09/17 06:07 Lidocaine (Lidoderm 5% PATCH) 1 patch DAILY TDERMAL 03/07/17 12:30 04/06/17 12:29 03/09/17 09:59 Mirtazapine (Remeron) 7.5 mg BEDTIME ORAL 03/07/17 21:00 04/06/17 20:59 03/08/17 20:49 Nitroglycerin (Ntg) 0.4 mg Q5M PRN SL Prn Chest Pain 03/06/17 22:15 04/05/17 22:14 Ondansetron HCl (Zofran) 4 mg Q6H PRN IVP Nausea & Vomiting 03/06/17 22:15 04/05/17 22:14 Polyethylene Glycol (Miralax) 17 gm DAILYPRN PRN ORAL Constipation 03/06/17 22:15 04/05/17 22:14 Temazepam 15 mg 15 mg HSPRN PRN ORAL Insomnia 03/06/17 22:15 03/13/17 22:14 03/08/17 20:49 [facility] RowlandNewy[facility] HospitalTatianna Estrella NP Mar 09, 2017 13:51
--- NOTE | 2017-03-09 22:38 | Consultation ---
DATE OF CONSULTATION: 03/09/2017 PAIN MANAGEMENT CONSULTATION CONSULTING PHYSICIAN: Richard Arteaga M.D. REFERRING PHYSICIAN: Nasreen Benitez M.D. PHYSICIAN TEST DIRECTOR: Sharona Perez CHIEF COMPLAINT: Low back pain. HISTORY OF PRESENT ILLNESS: This is an 87-year-old female, who is being seen on the telemetry floor of [facility] for initial comprehensive pain management consultation. The patient was transferred from [facility] where she had become increasingly altered mental status and was found to have urinary tract infection and had been taking fentanyl patches 50 mcg every 72 hours for chronic pain in the lower back and being bedbound causing sacral decubitus ulcers. At this time, the patient is comfortable in the bed. I discussed with the nurse. No sign of pain at this time. The patient is not complaining of pain at this time, as well. No narcotics on board at this time. However, the patient is still not fully alert and oriented. Due to this, we will start the patient on Tylenol with Codeine No. 3 every 4 hours as needed for severe pain and reassess the patient if the need arises for high dosage of narcotics. The patient on the chart has a history of hydrocodone allergy, however, there is no documentation of fax that it causes and the patient does not remember. PAST MEDICAL HISTORY: Lumbar spinal stenosis, osteoporosis, hyperlipidemia, and hypothyroidism. ALLERGIES: Hydrocodone, penicillin, and sulfa. MEDICATIONS: Robitussin, Lexapro, fentanyl patch, furosemide, gabapentin, Synthroid, lidocaine patch, Imodium, milk of magnesia, Remeron, Nystatin, simvastatin, and temazepam. SOCIAL HISTORY: Denies smoking, tobacco, drinking alcohol, or IV drug abuse as per the chart. REVIEW OF SYSTEMS: Denies rash, fever, chills, sweating, dizziness, drowsiness, blurred vision, sore throat, or change in her weight. No shortness of breath or chest pain. No nausea, vomiting, or blood in the stool or urine. No bowel or bladder incontinence. No dysuria. She is complaining of back pain. PHYSICAL EXAMINATION: GENERAL: Alert and awake. VITAL SIGNS: Blood pressure 134/64, heart rate 80, oxygen saturation 99%, respirations 18, and temperature is 98.2 degrees Fahrenheit. Height is 5 feet 4 inches and weight is 190 pounds. NECK: Range of motion is decreased due to the patient's clinical condition with tenderness to paracervical muscles. No adenopathy. LUNGS: Decreased breath sounds bilaterally. HEART: S1 and S2 regular. ABDOMEN: Obese. BACK: Range of motion is decreased due to the patient's clinical condition with tenderness to paraspinal muscles. No tenderness to trapezius or rhomboid muscles. Sacral decubitus ulcer noted. EXTREMITIES: Upper extremity range of motion is full in all directions. No cyanosis. No clubbing. No edema. Sensory is intact. Reflexes are not obtainable. No adenopathy. Lower extremity range of motion is decreased due to the patient's clinical condition with joint contractures noted. Edema was seen +2 in bilateral lower extremities. Sensory is reduced. Reflexes are not obtainable. ASSESSMENT AND PLAN: This is an 87-year-old female with altered mental status, urinary tract infection, lumbar spinal stenosis, lumbago, and sacral decubitus ulcer. The patient will be started on Tylenol No. 3 every 4 hours as needed for severe pain. We will reassess the patient's need for the addition of narcotics once the patient becomes more oriented. The patient was discussed with Dr. Arteaga and Jenni concurred. We will follow the patient. Thank you very much for the courtesy of this consultation. Richard Arteaga M.D. ROSALINA Peerz DR: PASHA JOB#: [id number] CC:
[2017-03-10 00:08] VITALS: BP 123/67
[2017-03-10] MEDS: Aztreonam Inj 0.5 GM in NS 55 ML IVPB SCH ×3 (00:37→15:44)
[2017-03-10 04:41] VITALS: BP 120/71
[2017-03-10 06:34] LABS: BASOPHILS % (AUTO) 0.5 % (0.0-2.0); EOSINOPHILS % (AUTO) 2.6 % (0.0-3.0); LYMPHOCYTES % (AUTO) 24.4 % (20.0-45.0); MEAN CORPUSCULAR HEMOGLOBIN 29.2 PG (27.0-31.0); MEAN CORPUSCULAR VOLUME 92 FL (80-99); MEAN PLATELET VOLUME 7.1 FL (6.5-10.1); NEUTROPHILS % (AUTO) 64.5 % (45.0-75.0); PLATELET COUNT 196 K/UL (150-450); WHITE BLOOD COUNT 8.7 K/UL (4.8-10.8)
[2017-03-10 07:22] LABS: ANION GAP 15 (5-15); CALCIUM 8.5 mg/dL (8.6-10.2); CARBON DIOXIDE 26 mEQ/L (20-30); CHLORIDE 102 mEQ/L (98-107); CREATININE 1.1 mg/dL (0.5-0.9); HEMOLYSIS 4; POTASSIUM 3.8 mEQ/L (3.4-4.9); SODIUM 143 mEQ/L (135-145)
--- NOTE | 2017-03-10 08:12 | General Progress Note ---
Assessment/Plan Assessment/Plan (1) Alerted Mental status (2) UTI (3) Lumbar spinal stenosis (4) Lumbago (5) Sacral decubitus ulcer Patient to be continued on Tylenol #3 Pt was discussed with Dr. Arteaga and he concurred. Subjective Date patient seen: March 10, 2017 Time patient seen: 07:15 - am Allergies: Coded Allergies: HYDROCODONE (Verified Allergy, Unknown, 03/06/17) PENICILLINS (Unverified Allergy, Unknown, 03/06/17) SULFA (SULFONAMIDE ANTIBIOTICS) (Unverified Allergy, Unknown, 03/06/17) Uncoded Allergies: PENICILLIN (Allergy, Unknown, 03/06/17) SULFA (Allergy, Unknown, 03/06/17) Subjective REVIEW OF SYSTEMS: Denies rash, fever, chills, sweating, dizziness, drowsiness, blurred vision, sore throat, or change in her weight. No shortness of breath or chest pain. No nausea, vomiting, or blood in the stool or urine. No bowel or bladder incontinence. No dysuria. SUBJECTIVE: Patient is in bed in c/o pain with movement. D/w nurse who will administer the Tylenol #3. Objective Last 24 Hour Vital Signs Date Time Temp Pulse Resp B/P Pulse Ox O2 Delivery O2 Flow Rate FiO2 03/10/17 04:41 98.2 21 120/71 100 Nasal Cannula 03/10/17 04:00 71 03/10/17 00:27 70 03/10/17 00:08 97.9 20 123/67 100 Nasal Cannula 03/09/17 22:27 75 03/09/17 22:12 98.4 18 129/70 100 Nasal Cannula 03/09/17 22:08 98.4 18 129/70 100 Nasal Cannula 03/09/17 20:00 98.2 73 21 109/65 100 Nasal Cannula 03/09/17 18:39 73 20 Nasal Cannula 3.0 32 03/09/17 18:39 Nasal Cannula 3.0 32 03/09/17 16:38 98.2 73 21 109/65 100 Nasal Cannula 03/09/17 16:00 70 03/09/17 12:00 98.1 84 18 114/70 97 Nasal Cannula 03/09/17 12:00 79 03/09/17 08:58 98.2 81 20 134/64 99 Nasal Cannula 03/09/17 08:55 Nasal Cannula 3.0 32 Intake and Output 03/09/17 03/10/17 19:00 07:00 Output Total 600 ml 800 ml Balance -600 ml -800 ml Output Urine Total 600 ml 800 ml Laboratory Tests 03/10/17 05:15: White Blood Count 8.7, Red Blood Count 3.30L, Hemoglobin 9.6L, Hematocrit 30.2L , Mean Corpuscular Volume 92, Mean Corpuscular Hemoglobin 29.2, Mean Corpuscular Hemoglobin Concent 32.0, Red Cell Distribution Width 14.0, Platelet Count 196, Mean Platelet Volume 7.1, Neutrophils (%) (Auto) 64.5, Lymphocytes (% ) (Auto) 24.4, Monocytes (%) (Auto) 8.0, Eosinophils (%) (Auto) 2.6, Basophils ( %) (Auto) 0.5, Sodium Level 143, Potassium Level 3.8, Chloride Level 102, Carbon Dioxide Level 26, Anion Gap 15, Blood Urea Nitrogen 17, Creatinine 1.1H, Estimat Glomerular Filtration Rate , Glucose Level 100, Calcium Level 8.5L Height (Feet): 5 Height (Inches): 4.00 Weight (Pounds): 170 Objective GENERAL: Alert and awake. NECK: Range of motion is decreased due to the patient's clinical condition with tenderness to paracervical muscles. No adenopathy. LUNGS: Decreased breath sounds bilaterally. HEART: S1 and S2 regular. ABDOMEN: Obese. BACK: Range of motion is decreased due to the patient's clinical condition with tenderness to paraspinal muscles. No tenderness to trapezius or rhomboid muscles. Sacral decubitus ulcer noted. EXTREMITIES: No cyanosis. No clubbing. NEURO: No changes. JUDY VOSS March 10, 2017 08:12
[2017-03-10 08:35] VITALS: BP 108/63
[2017-03-10] MEDS: D5 1/2NS 1,000 ML IV SCH (08:35)
[2017-03-10] MEDS: Tylenol #3 tab (300mg/30mg) ORAL PRN ×2 (08:37→15:43)
[2017-03-10] MEDS: Escitalopram Oxalate 5mg tab ORAL SCH (09:40)
[2017-03-10] MEDS: Heparin 5000 units/ml inj SUBQ SCH ×2 (09:41→21:38)
--- NOTE | 2017-03-10 10:09 | Infectious Diseases Prog Note ---
Assessment/Plan Assessment/Plan A: The patient is an 87-year-old female Sepsis, SP ALOC improved Leukocytosis, SP Fever, SP UTI Ecoli AbNl : LFT US : Uncertain visualization of the gallbladder. Shadowing gallbladder fossa may represent a stone filled gallbladder, versus shadowing from the duodenum if there has been prior cholecystectomy. History of chronic low back pain. Osteoporosis Hyperlipidemia Hypothyroidism PLAN: continue the patient on aztreonam d# 5 / 10 , upon DC will change to Levaquin ( SP vancomycin d# 4 ) Monitor CBC. Monitor BMP. Monitor cultures (bl) Monitor chest x-ray Subjective Allergies: Coded Allergies: HYDROCODONE (Verified Allergy, Unknown, 03/06/17) PENICILLINS (Unverified Allergy, Unknown, 03/06/17) SULFA (SULFONAMIDE ANTIBIOTICS) (Unverified Allergy, Unknown, 03/06/17) Uncoded Allergies: PENICILLIN (Allergy, Unknown, 03/06/17) SULFA (Allergy, Unknown, 03/06/17) Objective Vital Signs Last 24 Hour Vital Signs Date Time Temp Pulse Resp B/P Pulse Ox O2 Delivery O2 Flow Rate FiO2 03/10/17 08:35 98.2 70 20 108/63 96 Nasal Cannula 3.0 03/10/17 07:41 Nasal Cannula 3.0 32 03/10/17 07:40 72 20 Nasal Cannula 3.0 32 03/10/17 04:41 98.2 21 120/71 100 Nasal Cannula 03/10/17 04:00 71 03/10/17 00:27 70 03/10/17 00:08 97.9 20 123/67 100 Nasal Cannula 03/09/17 22:27 75 03/09/17 22:12 98.4 18 129/70 100 Nasal Cannula 03/09/17 22:08 98.4 18 129/70 100 Nasal Cannula 03/09/17 20:00 98.2 73 21 109/65 100 Nasal Cannula 03/09/17 18:39 73 20 Nasal Cannula 3.0 32 03/09/17 18:39 Nasal Cannula 3.0 32 03/09/17 16:38 98.2 73 21 109/65 100 Nasal Cannula 03/09/17 16:00 70 03/09/17 12:00 98.1 84 18 114/70 97 Nasal Cannula 03/09/17 12:00 79 Height (Feet): 5 Height (Inches): 4.00 Weight (Pounds): 170 Laboratory Tests Test 03/10/17 05:15 White Blood Count 8.7 K/UL (4.8-10.8) Red Blood Count 3.30 M/UL (4.20-5.40) L Hemoglobin 9.6 G/DL (12.0-16.0) L Hematocrit 30.2 % (37.0-47.0) L Mean Corpuscular Volume 92 FL (80-99) Mean Corpuscular Hemoglobin 29.2 PG (27.0-31.0) Mean Corpuscular Hemoglobin Concent 32.0 G/DL (32.0-36.0) Red Cell Distribution Width 14.0 % (11.6-14.8) Platelet Count 196 K/UL (150-450) Mean Platelet Volume 7.1 FL (6.5-10.1) Neutrophils (%) (Auto) 64.5 % (45.0-75.0) Lymphocytes (%) (Auto) 24.4 % (20.0-45.0) Monocytes (%) (Auto) 8.0 % (1.0-10.0) Eosinophils (%) (Auto) 2.6 % (0.0-3.0) Basophils (%) (Auto) 0.5 % (0.0-2.0) Sodium Level 143 mEQ/L (135-145) Potassium Level 3.8 mEQ/L (3.4-4.9) Chloride Level 102 mEQ/L (98-107) Carbon Dioxide Level 26 mEQ/L (20-30) Anion Gap 15 (5-15) Blood Urea Nitrogen 17 mg/dL (7-23) Creatinine 1.1 mg/dL (0.5-0.9) H Estimat Glomerular Filtration Rate mL/min (>60) Glucose Level 100 mg/dL (74-106) Calcium Level 8.5 mg/dL (8.6-10.2) L Current Medications Medications (Trade) Dose Ordered Sig/Augusto Route PRN Reason Start Time Stop Time Status Last Admin Dose Admin Acetaminophen (Tylenol) 650 mg Q4H PRN ORAL fever 03/06/17 22:15 04/05/17 22:14 Acetaminophen/ Codeine Phosphate (Tylenol #3) 1 tab Q4H PRN ORAL severe pain 03/09/17 10:00 5/7/17 09:59 03/10/17 08:37 Al Hydroxide/Mg Hydroxide (Mylanta II) 30 ml Q6H PRN ORAL dyspepsia 03/06/17 22:15 04/05/17 22:14 Albuterol/ Ipratropium (DuoNeb 0.5-3(2.5)mg/3ml) 3 ml EVERY 4 HOURS PRN HHN Shortness of Breath 03/06/17 22:15 03/11/17 22:14 Aztreonam/Sodium Chloride (Azactam/Sodium Chloride) 55 ml @ 110 mls/hr Q8H IVPB 03/07/17 08:00 03/14/17 07:59 03/10/17 08:36 Dextrose/Sodium Chloride (D5 0.45% NS) 1,000 ml @ 75 mls/hr [id number] IV 03/07/17 13:00 04/06/17 12:59 03/10/17 08:35 Escitalopram Oxalate (Lexapro) 5 mg DAILY ORAL 03/07/17 09:00 04/06/17 08:59 03/10/17 09:40 Heparin Sodium (Porcine) 5000 units 5,000 units EVERY 12 HOURS SUBQ 03/07/17 21:00 04/06/17 20:59 03/10/17 09:41 Levothyroxine Sodium (Synthroid) 75 mcg DAILY@0630 ORAL 03/07/17 06:30 04/06/17 06:29 03/10/17 06:16 Lidocaine (Lidoderm 5% PATCH) 1 patch DAILY TDERMAL 03/07/17 12:30 04/06/17 12:29 03/10/17 09:40 Mirtazapine (Remeron) 7.5 mg BEDTIME ORAL 03/07/17 21:00 04/06/17 20:59 03/09/17 20:45 Nitroglycerin (Ntg) 0.4 mg Q5M PRN SL Prn Chest Pain 03/06/17 22:15 04/05/17 22:14 Ondansetron HCl (Zofran) 4 mg Q6H PRN IVP Nausea & Vomiting 03/06/17 22:15 04/05/17 22:14 Polyethylene Glycol (Miralax) 17 gm DAILYPRN PRN ORAL Constipation 03/06/17 22:15 04/05/17 22:14 Temazepam 15 mg 15 mg HSPRN PRN ORAL Insomnia 03/06/17 22:15 03/13/17 22:14 03/08/17 20:49 EDIS HOLLINGSWORTH M.D. March 10, 2017 10:09
[2017-03-10 11:32] VITALS: BP 100/64
[2017-03-10 15:43] VITALS: BP 132/95
--- NOTE | 2017-03-10 16:38 | Pulmonology Progress Note ---
Assessment/Plan Problems: (1) Sepsis (2) UTI (urinary tract infection) (3) ARF (acute renal failure) (4) Elevated troponin (5) Altered mental status (6) Lumbar stenosis Assessment/Plan pt and family insist on getting fentanyl patch, I will resume it at lower dose coninue antibiotics on aztreonam dc IV fluids check electrolytes in am Subjective ROS Limited/Unobtainable: No Constitutional: Reports: no symptoms HEENT: Repors: no symptoms Respiratory: Reports: no symptoms Allergies: Coded Allergies: HYDROCODONE (Verified Allergy, Unknown, 03/06/17) PENICILLINS (Unverified Allergy, Unknown, 03/06/17) SULFA (SULFONAMIDE ANTIBIOTICS) (Unverified Allergy, Unknown, 03/06/17) Uncoded Allergies: PENICILLIN (Allergy, Unknown, 03/06/17) SULFA (Allergy, Unknown, 03/06/17) Objective Last 24 Hour Vital Signs Date Time Temp Pulse Resp B/P Pulse Ox O2 Delivery O2 Flow Rate FiO2 03/10/17 15:43 97.2 72 22 132/95 95 Nasal Cannula 3.0 03/10/17 12:00 64 03/10/17 11:32 97.9 70 20 100/64 96 Nasal Cannula 3.0 03/10/17 08:35 98.2 70 20 108/63 96 Nasal Cannula 3.0 03/10/17 08:00 77 03/10/17 07:41 Nasal Cannula 3.0 32 03/10/17 07:40 72 20 Nasal Cannula 3.0 32 03/10/17 04:41 98.2 21 120/71 100 Nasal Cannula 03/10/17 04:00 71 03/10/17 00:27 70 03/10/17 00:08 97.9 20 123/67 100 Nasal Cannula 03/09/17 22:27 75 03/09/17 22:12 98.4 18 129/70 100 Nasal Cannula 03/09/17 22:08 98.4 18 129/70 100 Nasal Cannula 03/09/17 20:00 98.2 73 21 109/65 100 Nasal Cannula 03/09/17 18:39 73 20 Nasal Cannula 3.0 32 03/09/17 18:39 Nasal Cannula 3.0 32 03/09/17 16:38 98.2 73 21 109/65 100 Nasal Cannula Intake and Output 03/09/17 03/10/17 19:00 07:00 Output Total 600 ml 800 ml Balance -600 ml -800 ml Output Urine Total 600 ml 800 ml General Appearance: cachetic HEENT: normocephalic, atraumatic Respiratory/Chest: chest wall non-tender, lungs clear Cardiovascular: normal peripheral pulses, normal rate Abdomen: normal bowel sounds, soft, non tender Genitourinary: normal external genitalia Lymphatic: no neck adenopathy Laboratory Tests 03/10/17 05:15: White Blood Count 8.7, Red Blood Count 3.30L, Hemoglobin 9.6L, Hematocrit 30.2L , Mean Corpuscular Volume 92, Mean Corpuscular Hemoglobin 29.2, Mean Corpuscular Hemoglobin Concent 32.0, Red Cell Distribution Width 14.0, Platelet Count 196, Mean Platelet Volume 7.1, Neutrophils (%) (Auto) 64.5, Lymphocytes (% ) (Auto) 24.4, Monocytes (%) (Auto) 8.0, Eosinophils (%) (Auto) 2.6, Basophils ( %) (Auto) 0.5, Sodium Level 143, Potassium Level 3.8, Chloride Level 102, Carbon Dioxide Level 26, Anion Gap 15, Blood Urea Nitrogen 17, Creatinine 1.1H, Estimat Glomerular Filtration Rate , Glucose Level 100, Calcium Level 8.5L Current Medications Medications (Trade) Dose Ordered Sig/Augusto Route PRN Reason Start Time Stop Time Status Last Admin Dose Admin Acetaminophen (Tylenol) 650 mg Q4H PRN ORAL fever 03/06/17 22:15 04/05/17 22:14 Acetaminophen/ Codeine Phosphate (Tylenol #3) 1 tab Q4H PRN ORAL severe pain 03/09/17 10:00 03/16/17 09:59 03/10/17 15:43 Al Hydroxide/Mg Hydroxide (Mylanta II) 30 ml Q6H PRN ORAL dyspepsia 03/06/17 22:15 04/05/17 22:14 Albuterol/ Ipratropium (DuoNeb 0.5-3(2.5)mg/3ml) 3 ml EVERY 4 HOURS PRN HHN Shortness of Breath 03/06/17 22:15 03/11/17 22:14 Aztreonam/Sodium Chloride (Azactam/Sodium Chloride) 55 ml @ 110 mls/hr Q8H IVPB 03/07/17 08:00 03/14/17 07:59 03/10/17 15:44 Dextrose/Sodium Chloride (D5 0.45% NS) 1,000 ml @ 75 mls/hr [id number] IV 03/07/17 13:00 04/06/17 12:59 03/10/17 08:35 Escitalopram Oxalate (Lexapro) 5 mg DAILY ORAL 03/07/17 09:00 04/06/17 08:59 03/10/17 09:40 Heparin Sodium (Porcine) 5000 units 5,000 units EVERY 12 HOURS SUBQ 03/07/17 21:00 04/06/17 20:59 03/10/17 09:41 Levothyroxine Sodium (Synthroid) 75 mcg DAILY@0630 ORAL 03/07/17 06:30 04/06/17 06:29 03/10/17 06:16 Lidocaine (Lidoderm 5% PATCH) 1 patch DAILY TDERMAL 03/07/17 12:30 04/06/17 12:29 03/10/17 09:40 Mirtazapine (Remeron) 7.5 mg BEDTIME ORAL 03/07/17 21:00 04/06/17 20:59 03/09/17 20:45 Nitroglycerin (Ntg) 0.4 mg Q5M PRN SL Prn Chest Pain 03/06/17 22:15 04/05/17 22:14 Ondansetron HCl (Zofran) 4 mg Q6H PRN IVP Nausea & Vomiting 03/06/17 22:15 04/05/17 22:14 Polyethylene Glycol (Miralax) 17 gm DAILYPRN PRN ORAL Constipation 03/06/17 22:15 04/05/17 22:14 Temazepam 15 mg 15 mg HSPRN PRN ORAL Insomnia 03/06/17 22:15 03/13/17 22:14 03/08/17 20:49 DALTON B[place]MING[place]AM March 10, 2017 16:38
[2017-03-10] MEDS ORDERED: Naloxone 0.4mg/ml Inj IV PRN (16:45)
--- NOTE | 2017-03-10 17:48 | Internal Med Progress Note ---
Subjective Date of Service: March 10, 2017 Physician Name Jamison,Kanchan Attending Physician Lv Cloud MD Current Medications Medications (Trade) Dose Ordered Sig/Augusto Route PRN Reason Start Time Stop Time Status Last Admin Dose Admin Acetaminophen (Tylenol) 650 mg Q4H PRN ORAL fever 03/06/17 22:15 04/05/17 22:14 Acetaminophen/ Codeine Phosphate (Tylenol #3) 1 tab Q4H PRN ORAL severe pain 03/09/17 10:00 03/16/17 09:59 03/10/17 15:43 Al Hydroxide/Mg Hydroxide (Mylanta II) 30 ml Q6H PRN ORAL dyspepsia 03/06/17 22:15 04/05/17 22:14 Albuterol/ Ipratropium (DuoNeb 0.5-3(2.5)mg/3ml) 3 ml EVERY 4 HOURS PRN HHN Shortness of Breath 03/06/17 22:15 03/11/17 22:14 Aztreonam/Sodium Chloride (Azactam/Sodium Chloride) 55 ml @ 110 mls/hr Q8H IVPB 03/07/17 08:00 03/14/17 07:59 03/10/17 15:44 Escitalopram Oxalate (Lexapro) 5 mg DAILY ORAL 03/07/17 09:00 04/06/17 08:59 03/10/17 09:40 Fentanyl (Duragesic) 1 patch Q72H TDERMAL 03/10/17 18:00 03/17/17 17:59 Heparin Sodium (Porcine) (Heparin 5000 units/ml) 5,000 units EVERY 12 HOURS SUBQ 03/07/17 21:00 04/06/17 20:59 03/10/17 09:41 Levothyroxine Sodium (Synthroid) 75 mcg DAILY@0630 ORAL 03/07/17 06:30 04/06/17 06:29 03/10/17 06:16 Lidocaine (Lidoderm 5% PATCH) 1 patch DAILY TDERMAL 03/07/17 12:30 04/06/17 12:29 03/10/17 09:40 Mirtazapine (Remeron) 7.5 mg BEDTIME ORAL 03/07/17 21:00 04/06/17 20:59 03/09/17 20:45 Naloxone HCl (Narcan) 0.1 mg PRN IV Sedation scale 3 or 4 03/10/17 16:45 04/09/17 16:44 Nitroglycerin (Ntg) 0.4 mg Q5M PRN SL Prn Chest Pain 03/06/17 22:15 04/05/17 22:14 Ondansetron HCl (Zofran) 4 mg Q6H PRN IVP Nausea & Vomiting 03/06/17 22:15 04/05/17 22:14 Polyethylene Glycol (Miralax) 17 gm DAILYPRN PRN ORAL Constipation 03/06/17 22:15 04/05/17 22:14 Temazepam 15 mg 15 mg HSPRN PRN ORAL Insomnia 03/06/17 22:15 03/13/17 22:14 03/08/17 20:49 Allergies: Coded Allergies: HYDROCODONE (Verified Allergy, Unknown, 03/06/17) PENICILLINS (Unverified Allergy, Unknown, 03/06/17) SULFA (SULFONAMIDE ANTIBIOTICS) (Unverified Allergy, Unknown, 03/06/17) ROS Limited/Unobtainable: Yes Subjective 87 YO F admitted with altered mental status. Now UTI. Cover for Int Med-Dr Cloud. Objective Last Vital Signs Date Time Temp Pulse Resp B/P Pulse Ox O2 Delivery O2 Flow Rate FiO2 03/10/17 16:00 76 03/10/17 15:43 97.2 22 132/95 95 Nasal Cannula 3.0 03/10/17 07:41 32 Laboratory Tests Test 03/10/17 05:15 White Blood Count 8.7 K/UL (4.8-10.8) Red Blood Count 3.30 M/UL (4.20-5.40) L Hemoglobin 9.6 G/DL (12.0-16.0) L Hematocrit 30.2 % (37.0-47.0) L Mean Corpuscular Volume 92 FL (80-99) Mean Corpuscular Hemoglobin 29.2 PG (27.0-31.0) Mean Corpuscular Hemoglobin Concent 32.0 G/DL (32.0-36.0) Red Cell Distribution Width 14.0 % (11.6-14.8) Platelet Count 196 K/UL (150-450) Mean Platelet Volume 7.1 FL (6.5-10.1) Neutrophils (%) (Auto) 64.5 % (45.0-75.0) Lymphocytes (%) (Auto) 24.4 % (20.0-45.0) Monocytes (%) (Auto) 8.0 % (1.0-10.0) Eosinophils (%) (Auto) 2.6 % (0.0-3.0) Basophils (%) (Auto) 0.5 % (0.0-2.0) Sodium Level 143 mEQ/L (135-145) Potassium Level 3.8 mEQ/L (3.4-4.9) Chloride Level 102 mEQ/L (98-107) Carbon Dioxide Level 26 mEQ/L (20-30) Anion Gap 15 (5-15) Blood Urea Nitrogen 17 mg/dL (7-23) Creatinine 1.1 mg/dL (0.5-0.9) H Estimat Glomerular Filtration Rate mL/min (>60) Glucose Level 100 mg/dL (74-106) Calcium Level 8.5 mg/dL (8.6-10.2) L Intake and Output 03/09/17 03/10/17 19:00 07:00 Output Total 600 ml 800 ml Balance -600 ml -800 ml Output Urine Total 600 ml 800 ml Objective General: alert, cooperative, no distress, appears stated age Head: normocephalic, without obvious abnormality, atraumatic Eyes: conjunctivae/corneas clear. PERRL, EOM's intact Throat: lips, mucosa, and tongue normal. MMM Neck: supple, symmetrical, trachea midline, and no JVD Lungs: clear to auscultation bilaterally Heart: regular rate and rhythm, S1, S2 normal, no murmur, click, rub or gallop Abdomen: soft, non-tender, non-distended, bowel sounds normal; no masses or organomegaly Extremities: extremities normal, atraumatic, no cyanosis or edema Pulses: 2+ and symmetric Skin: skin color, texture, turgor normal; no rashes or lesions Neurologic: grossly normal, no focal deficits Assessment/Plan Problem List: (1) Renal failure (ARF), acute on chronic Assessment & Plan: Resolving on IV fluids. (2) Congestive heart failure (3) Hypothyroidism Assessment & Plan: Cont levoxyl. (4) Hypercholesteremia (5) Lumbar stenosis (6) Osteoporosis (7) UTI (urinary tract infection) Assessment & Plan: E. Coli. Cont aztreonam - See ID note. (8) ARF (acute renal failure) (9) Altered mental status (10) Major depressive disorder Assessment & Plan: See Psych note. Assessment/Plan Discharge planning: [facility]. KANCHAN JAMISON March 10, 2017 17:48
[2017-03-10 20:00] VITALS: BP 99/61
[2017-03-11] VITALS: BP 110/70
[2017-03-11] MEDS: Aztreonam Inj 0.5 GM in NS 55 ML IVPB SCH ×3 (00:08→17:36)
[2017-03-11 04:00] VITALS: BP 130/76
[2017-03-11 07:52] LABS: BASOPHILS % (AUTO) 0.9 % (0.0-2.0); EOSINOPHILS % (AUTO) 2.8 % (0.0-3.0); LYMPHOCYTES % (AUTO) 27.2 % (20.0-45.0); MEAN CORPUSCULAR HEMOGLOBIN 28.7 PG (27.0-31.0); MEAN CORPUSCULAR HGB CONC 32.2 G/DL (32.0-36.0); MEAN CORPUSCULAR VOLUME 89 FL (80-99); MEAN PLATELET VOLUME 6.6 FL (6.5-10.1); MONOCYTES % (AUTO) 6.2 % (1.0-10.0); NEUTROPHILS % (AUTO) 62.9 % (45.0-75.0); PLATELET COUNT 210 K/UL (150-450); RED BLOOD COUNT 3.49 M/UL (4.20-5.40); WHITE BLOOD COUNT 8.7 K/UL (4.8-10.8)
[2017-03-11 08:02] VITALS: BP 122/74
[2017-03-11 08:06] LABS: ALANINE AMINOTRANSFERASE 31 U/L (3-33); ANION GAP 14 (5-15); ASPARTATE AMINO TRANSFERASE 30 U/L (5-40); CALCIUM 8.4 mg/dL (8.6-10.2); CARBON DIOXIDE 25 mEQ/L (20-30); CHLORIDE 101 mEQ/L (98-107); HEMOLYSIS 31; MAGNESIUM 1.7 mg/dL (1.7-2.5); POTASSIUM 3.6 mEQ/L (3.4-4.9); SODIUM 140 mEQ/L (135-145); TOTAL PROTEIN 5.5 g/dL (6.6-8.7)
[2017-03-11] MEDS: Escitalopram Oxalate 5mg tab ORAL SCH (08:53)
--- NOTE | 2017-03-11 08:53 | General Progress Note ---
Assessment/Plan Assessment/Plan (1) Alerted Mental status (2) UTI (3) Lumbar spinal stenosis (4) Lumbago (5) Sacral decubitus ulcer Patient to be continued on Tylenol #3 and Fentanyl patch 25mcg Q72 HR hold for oversedation. Pt was discussed with Dr. Arteaga and he concurred. Subjective Date patient seen: March 11, 2017 Time patient seen: 07:15 - am Allergies: Coded Allergies: HYDROCODONE (Verified Allergy, Unknown, 03/06/17) PENICILLINS (Unverified Allergy, Unknown, 03/06/17) SULFA (SULFONAMIDE ANTIBIOTICS) (Unverified Allergy, Unknown, 03/06/17) Subjective REVIEW OF SYSTEMS: Denies rash, fever, chills, sweating, dizziness, drowsiness, blurred vision, sore throat, or change in her weight. No shortness of breath or chest pain. No nausea, vomiting, or blood in the stool or urine. No bowel or bladder incontinence. No dysuria. SUBJECTIVE: She is sitting in bed and is in no signs of pain doing PT. Fentanyl patch was restarted and she has no signs of confusion noted. Objective Last 24 Hour Vital Signs Date Time Temp Pulse Resp B/P Pulse Ox O2 Delivery O2 Flow Rate FiO2 03/11/17 08:02 97.9 80 20 122/74 95 Nasal Cannula 2.0 03/11/17 08:02 Nasal Cannula 2.0 28 03/11/17 08:02 92 Nasal Cannula 2.0 28 03/11/17 08:02 70 20 Nasal Cannula 2.0 28 03/11/17 04:00 97.7 81 20 130/76 96 Room Air 03/11/17 04:00 74 03/11/17 00:00 97.8 74 21 110/70 95 Nasal Cannula 2.0 03/11/17 00:00 76 03/10/17 20:00 65 03/10/17 20:00 97.7 71 22 99/61 98 Nasal Cannula 2.0 03/10/17 19:30 70 20 Nasal Cannula 3.0 32 03/10/17 19:30 Nasal Cannula 3.0 32 03/10/17 16:00 76 03/10/17 15:43 97.2 72 22 132/95 95 Nasal Cannula 3.0 03/10/17 12:00 64 03/10/17 11:32 97.9 70 20 100/64 96 Nasal Cannula 3.0 Intake and Output 03/10/17 03/11/17 19:00 07:00 Intake Total 1070 ml 110 ml Output Total 500 ml 400 ml Balance 570 ml -290 ml Intake Oral 360 ml IV Total 710 ml 110 ml Output Urine Total 500 ml 400 ml Laboratory Tests 03/11/17 07:25: White Blood Count 8.7, Red Blood Count 3.49L, Hemoglobin 10.0L, Hematocrit 31.1L , Mean Corpuscular Volume 89, Mean Corpuscular Hemoglobin 28.7, Mean Corpuscular Hemoglobin Concent 32.2, Red Cell Distribution Width 14.0, Platelet Count 210, Mean Platelet Volume 6.6, Neutrophils (%) (Auto) 62.9, Lymphocytes (% ) (Auto) 27.2, Monocytes (%) (Auto) 6.2, Eosinophils (%) (Auto) 2.8, Basophils ( %) (Auto) 0.9, Sodium Level 140, Potassium Level 3.6, Chloride Level 101, Carbon Dioxide Level 25, Anion Gap 14, Blood Urea Nitrogen 13, Creatinine 1.0H, Estimat Glomerular Filtration Rate , Glucose Level 93, Calcium Level 8.4L, Magnesium Level 1.7, Total Bilirubin 0.4, Aspartate Amino Transf (AST/SGOT) 30, Alanine Aminotransferase (ALT/SGPT) 31, Alkaline Phosphatase 112H, Total Protein 5.5L, Albumin 2.8L, Globulin 2.7, Albumin/Globulin Ratio 1.0 Height (Feet): 5 Height (Inches): 4.00 Weight (Pounds): 170 Objective GENERAL: Alert and awake. NECK: Range of motion is decreased due to the patient's clinical condition with tenderness to paracervical muscles. No adenopathy. LUNGS: Decreased breath sounds bilaterally. HEART: S1 and S2 regular. ABDOMEN: Obese. BACK: Range of motion is decreased due to the patient's clinical condition with tenderness to paraspinal muscles. No tenderness to trapezius or rhomboid muscles. Sacral decubitus ulcer noted. EXTREMITIES: No cyanosis. No clubbing. NEURO: No changes. JUDY VOSS March 11, 2017 08:53
[2017-03-11] MEDS: Heparin 5000 units/ml inj SUBQ SCH ×2 (08:55→21:05)
--- NOTE | 2017-03-11 10:10 | Infectious Diseases Prog Note ---
Assessment/Plan Assessment/Plan A: The patient is an 87-year-old female Sepsis, SP ALOC improved Leukocytosis, SP Fever, SP UTI Ecoli AbNl : LFT US : Uncertain visualization of the gallbladder. Shadowing gallbladder fossa may represent a stone filled gallbladder, versus shadowing from the duodenum if there has been prior cholecystectomy. History of chronic low back pain. Osteoporosis Hyperlipidemia Hypothyroidism PLAN: continue the patient on aztreonam d# 6 / 10 , upon DC will change to Levaquin ( SP vancomycin d# 4 ) Monitor CBC. Monitor BMP. Monitor cultures (bl) Monitor chest x-ray Subjective Constitutional: Denies: anorexia, chills, drenching sweats, fatigue, fever, no symptoms, other Allergies: Coded Allergies: HYDROCODONE (Verified Allergy, Unknown, 03/06/17) PENICILLINS (Unverified Allergy, Unknown, 03/06/17) SULFA (SULFONAMIDE ANTIBIOTICS) (Unverified Allergy, Unknown, 03/06/17) Objective Vital Signs Last 24 Hour Vital Signs Date Time Temp Pulse Resp B/P Pulse Ox O2 Delivery O2 Flow Rate FiO2 03/11/17 08:02 97.9 80 20 122/74 95 Nasal Cannula 2.0 03/11/17 08:02 Nasal Cannula 2.0 28 03/11/17 08:02 92 Nasal Cannula 2.0 28 03/11/17 08:02 70 20 Nasal Cannula 2.0 28 03/11/17 04:00 97.7 81 20 130/76 96 Room Air 03/11/17 04:00 74 03/11/17 00:00 97.8 74 21 110/70 95 Nasal Cannula 2.0 03/11/17 00:00 76 03/10/17 20:00 65 03/10/17 20:00 97.7 71 22 99/61 98 Nasal Cannula 2.0 03/10/17 19:30 70 20 Nasal Cannula 3.0 32 03/10/17 19:30 Nasal Cannula 3.0 32 03/10/17 16:00 76 03/10/17 15:43 97.2 72 22 132/95 95 Nasal Cannula 3.0 03/10/17 12:00 64 03/10/17 11:32 97.9 70 20 100/64 96 Nasal Cannula 3.0 Height (Feet): 5 Height (Inches): 4.00 Weight (Pounds): 170 HEENT: anicteric Respiratory/Chest: no accessory muscle use Cardiovascular: no gallop/murmur, no JVD Laboratory Tests Test 03/11/17 07:25 White Blood Count 8.7 K/UL (4.8-10.8) Red Blood Count 3.49 M/UL (4.20-5.40) L Hemoglobin 10.0 G/DL (12.0-16.0) L Hematocrit 31.1 % (37.0-47.0) L Mean Corpuscular Volume 89 FL (80-99) Mean Corpuscular Hemoglobin 28.7 PG (27.0-31.0) Mean Corpuscular Hemoglobin Concent 32.2 G/DL (32.0-36.0) Red Cell Distribution Width 14.0 % (11.6-14.8) Platelet Count 210 K/UL (150-450) Mean Platelet Volume 6.6 FL (6.5-10.1) Neutrophils (%) (Auto) 62.9 % (45.0-75.0) Lymphocytes (%) (Auto) 27.2 % (20.0-45.0) Monocytes (%) (Auto) 6.2 % (1.0-10.0) Eosinophils (%) (Auto) 2.8 % (0.0-3.0) Basophils (%) (Auto) 0.9 % (0.0-2.0) Sodium Level 140 mEQ/L (135-145) Potassium Level 3.6 mEQ/L (3.4-4.9) Chloride Level 101 mEQ/L (98-107) Carbon Dioxide Level 25 mEQ/L (20-30) Anion Gap 14 (5-15) Blood Urea Nitrogen 13 mg/dL (7-23) Creatinine 1.0 mg/dL (0.5-0.9) H Estimat Glomerular Filtration Rate mL/min (>60) Glucose Level 93 mg/dL (74-106) Calcium Level 8.4 mg/dL (8.6-10.2) L Magnesium Level 1.7 mg/dL (1.7-2.5) Total Bilirubin 0.4 mg/dL (0.0-1.2) Aspartate Amino Transf (AST/SGOT) 30 U/L (5-40) Alanine Aminotransferase (ALT/SGPT) 31 U/L (3-33) Alkaline Phosphatase 112 U/L (35-104) H Total Protein 5.5 g/dL (6.6-8.7) L Albumin 2.8 g/dL (3.5-5.2) L Globulin 2.7 g/dL Albumin/Globulin Ratio 1.0 (1.0-2.7) Current Medications Medications (Trade) Dose Ordered Sig/Augutso Route PRN Reason Start Time Stop Time Status Last Admin Dose Admin Acetaminophen (Tylenol) 650 mg Q4H PRN ORAL fever 03/06/17 22:15 04/05/17 22:14 Acetaminophen/ Codeine Phosphate (Tylenol #3) 1 tab Q4H PRN ORAL severe pain 03/09/17 10:00 03/16/17 09:59 03/10/17 15:43 Al Hydroxide/Mg Hydroxide (Mylanta II) 30 ml Q6H PRN ORAL dyspepsia 03/06/17 22:15 04/05/17 22:14 Albuterol/ Ipratropium (DuoNeb 0.5-3(2.5)mg/3ml) 3 ml EVERY 4 HOURS PRN HHN Shortness of Breath 03/06/17 22:15 03/11/17 22:14 Aztreonam/Sodium Chloride (Azactam/Sodium Chloride) 55 ml @ 110 mls/hr Q8H IVPB 03/07/17 08:00 03/14/17 07:59 03/11/17 08:53 Escitalopram Oxalate (Lexapro) 5 mg DAILY ORAL 03/07/17 09:00 04/06/17 08:59 03/11/17 08:53 Fentanyl (Duragesic) 1 patch Q72H TDERMAL 03/10/17 18:00 03/17/17 17:59 03/10/17 17:51 Heparin Sodium (Porcine) (Heparin 5000 units/ml) 5,000 units EVERY 12 HOURS SUBQ 03/07/17 21:00 04/06/17 20:59 03/11/17 08:55 Levothyroxine Sodium (Synthroid) 75 mcg DAILY@0630 ORAL 03/07/17 06:30 04/06/17 06:29 03/11/17 06:29 Lidocaine (Lidoderm 5% PATCH) 1 patch DAILY TDERMAL 03/07/17 12:30 04/06/17 12:29 03/11/17 08:54 Mirtazapine (Remeron) 7.5 mg BEDTIME ORAL 03/07/17 21:00 04/06/17 20:59 03/10/17 21:37 Naloxone HCl (Narcan) 0.1 mg PRN IV Sedation scale 3 or 4 03/10/17 16:45 04/09/17 16:44 Nitroglycerin (Ntg) 0.4 mg Q5M PRN SL Prn Chest Pain 03/06/17 22:15 04/05/17 22:14 Ondansetron HCl (Zofran) 4 mg Q6H PRN IVP Nausea & Vomiting 03/06/17 22:15 04/05/17 22:14 Polyethylene Glycol (Miralax) 17 gm DAILYPRN PRN ORAL Constipation 03/06/17 22:15 04/05/17 22:14 Temazepam 15 mg 15 mg HSPRN PRN ORAL Insomnia 03/06/17 22:15 03/13/17 22:14 03/08/17 20:49 EDIS HOLLINGSWORTH M.D. March 11, 2017 10:09
[2017-03-11 12:01] VITALS: BP 133/59
[2017-03-11] MEDS ORDERED: LEVAQUIN500 MG ORAL (15:00)
--- NOTE | 2017-03-11 15:04 | Discharge Summary ---
Discharge Summary Hospital Course Date of Admission Mar 06, 2017 at 19:45 Date of Discharge Admitting Diagnosis altered mental status HPI Jannet Kimble is a 87 year old female who was admitted on Mar 06, 2017 at 19:45 for Altered Mental Status Hospital Course The patient was seen and examined at bedside and all new and available data was reviewed in the patients chart. Last 24 Hour Vital Signs Date Time Temp Pulse Resp B/P Pulse Ox O2 Delivery O2 Flow Rate FiO2 03/11/17 12:01 97.9 71 20 133/59 97 Nasal Cannula 2.0 03/11/17 12:00 76 03/11/17 08:02 97.9 80 20 122/74 95 Nasal Cannula 2.0 03/11/17 08:02 Nasal Cannula 2.0 28 03/11/17 08:02 92 Nasal Cannula 2.0 28 03/11/17 08:02 70 20 Nasal Cannula 2.0 28 03/11/17 08:00 75 03/11/17 04:00 97.7 81 20 130/76 96 Room Air 03/11/17 04:00 74 03/11/17 00:00 97.8 74 21 110/70 95 Nasal Cannula 2.0 03/11/17 00:00 76 03/10/17 20:00 65 03/10/17 20:00 97.7 71 22 99/61 98 Nasal Cannula 2.0 03/10/17 19:30 70 20 Nasal Cannula 3.0 32 03/10/17 19:30 Nasal Cannula 3.0 32 03/10/17 16:00 76 03/10/17 15:43 97.2 72 22 132/95 95 Nasal Cannula 3.0 GENERAL: The patient is awake, responsive, not in acute distress, very pleasant, answering questions appropriately HEAD AND NECK: Pupils react to light. Extraocular movements are intact. Neck was supple. Positive JVD. HEART: S1 and S2. Irregular. Distant heart sounds. ABDOMEN: Soft, nondistended, and nontender. Positive bowel sounds. obesity. EXTREMITIES: No cyanosis or clubbing. +2 edema bilateral lower extremities. NEUROLOGIC: Cranial nerves II through XII grossly intact. The patient moving all extremities. PSYCHIATRIC: Mood and affect intact. Plan: DC home with . (Patient was seen earlier today. Signature timestamp does not reflect patient encounter time) Lv Cloud MD Discharge Discharge Disposition Patient was discharged to Discharge Diagnoses: Lv Cloud MD March 11, 2017 15:04
[2017-03-11 15:47] VITALS: BP 129/66
--- NOTE | 2017-03-11 16:01 | Pulmonology Progress Note ---
Assessment/Plan Problems: (1) Sepsis (2) UTI (urinary tract infection) (3) ARF (acute renal failure) (4) Elevated troponin (5) Altered mental status (6) Lumbar stenosis Assessment/Plan pt and family insist on getting fentanyl patch, I will resume it at lower dose coninue antibiotics on aztreonam ok to dc on oral levoflox to assisted living Subjective ROS Limited/Unobtainable: No Constitutional: Reports: no symptoms Respiratory: Reports: no symptoms Cardiovascular: Reports: no symptoms Allergies: Coded Allergies: HYDROCODONE (Verified Allergy, Unknown, 03/06/17) PENICILLINS (Unverified Allergy, Unknown, 03/06/17) SULFA (SULFONAMIDE ANTIBIOTICS) (Unverified Allergy, Unknown, 03/06/17) Objective Last 24 Hour Vital Signs Date Time Temp Pulse Resp B/P Pulse Ox O2 Delivery O2 Flow Rate FiO2 03/11/17 15:47 97.9 79 20 129/66 96 Nasal Cannula 2.0 03/11/17 12:01 97.9 71 20 133/59 97 Nasal Cannula 2.0 03/11/17 12:00 76 03/11/17 08:02 97.9 80 20 122/74 95 Nasal Cannula 2.0 03/11/17 08:02 Nasal Cannula 2.0 28 03/11/17 08:02 92 Nasal Cannula 2.0 28 03/11/17 08:02 70 20 Nasal Cannula 2.0 28 03/11/17 08:00 75 03/11/17 04:00 97.7 81 20 130/76 96 Room Air 03/11/17 04:00 74 03/11/17 00:00 97.8 74 21 110/70 95 Nasal Cannula 2.0 03/11/17 00:00 76 03/10/17 20:00 65 03/10/17 20:00 97.7 71 22 99/61 98 Nasal Cannula 2.0 03/10/17 19:30 70 20 Nasal Cannula 3.0 32 03/10/17 19:30 Nasal Cannula 3.0 32 03/10/17 16:00 76 Intake and Output 03/10/17 03/11/17 19:00 07:00 Intake Total 1070 ml 110 ml Output Total 500 ml 400 ml Balance 570 ml -290 ml Intake Oral 360 ml IV Total 710 ml 110 ml Output Urine Total 500 ml 400 ml General Appearance: WD/WN HEENT: normocephalic, atraumatic Respiratory/Chest: chest wall non-tender, lungs clear Breasts: no masses Abdomen: normal bowel sounds, soft, non tender Genitourinary: normal external genitalia Extremities: no clubbing Neurologic/Psychiatric: systems management consultant II-XII grossly normal, no motor/sensory deficits Lymphatic: no neck adenopathy Laboratory Tests 03/11/17 07:25: White Blood Count 8.7, Red Blood Count 3.49L, Hemoglobin 10.0L, Hematocrit 31.1L , Mean Corpuscular Volume 89, Mean Corpuscular Hemoglobin 28.7, Mean Corpuscular Hemoglobin Concent 32.2, Red Cell Distribution Width 14.0, Platelet Count 210, Mean Platelet Volume 6.6, Neutrophils (%) (Auto) 62.9, Lymphocytes (% ) (Auto) 27.2, Monocytes (%) (Auto) 6.2, Eosinophils (%) (Auto) 2.8, Basophils ( %) (Auto) 0.9, Sodium Level 140, Potassium Level 3.6, Chloride Level 101, Carbon Dioxide Level 25, Anion Gap 14, Blood Urea Nitrogen 13, Creatinine 1.0H, Estimat Glomerular Filtration Rate , Glucose Level 93, Calcium Level 8.4L, Magnesium Level 1.7, Total Bilirubin 0.4, Aspartate Amino Transf (AST/SGOT) 30, Alanine Aminotransferase (ALT/SGPT) 31, Alkaline Phosphatase 112H, Total Protein 5.5L, Albumin 2.8L, Globulin 2.7, Albumin/Globulin Ratio 1.0 Current Medications Medications (Trade) Dose Ordered Sig/Augusto Route PRN Reason Start Time Stop Time Status Last Admin Dose Admin Acetaminophen (Tylenol) 650 mg Q4H PRN ORAL fever 03/06/17 22:15 04/05/17 22:14 Acetaminophen/ Codeine Phosphate (Tylenol #3) 1 tab Q4H PRN ORAL severe pain 03/09/17 10:00 03/16/17 09:59 03/10/17 15:43 Al Hydroxide/Mg Hydroxide (Mylanta II) 30 ml Q6H PRN ORAL dyspepsia 03/06/17 22:15 04/05/17 22:14 Albuterol/ Ipratropium (DuoNeb 0.5-3(2.5)mg/3ml) 3 ml EVERY 4 HOURS PRN HHN Shortness of Breath 03/06/17 22:15 03/11/17 22:14 Aztreonam/Sodium Chloride (Azactam/Sodium Chloride) 55 ml @ 110 mls/hr Q8H IVPB 03/07/17 08:00 03/14/17 07:59 03/11/17 08:53 Escitalopram Oxalate (Lexapro) 5 mg DAILY ORAL 03/07/17 09:00 04/06/17 08:59 03/11/17 08:53 Fentanyl (Duragesic) 1 patch Q72H TDERMAL 03/10/17 18:00 03/17/17 17:59 03/10/17 17:51 Heparin Sodium (Porcine) (Heparin 5000 units/ml) 5,000 units EVERY 12 HOURS SUBQ 03/07/17 21:00 04/06/17 20:59 03/11/17 08:55 Levothyroxine Sodium (Synthroid) 75 mcg DAILY@0630 ORAL 03/07/17 06:30 04/06/17 06:29 03/11/17 06:29 Lidocaine (Lidoderm 5% PATCH) 1 patch DAILY TDERMAL 03/07/17 12:30 04/06/17 12:29 03/11/17 08:54 Mirtazapine (Remeron) 7.5 mg BEDTIME ORAL 03/07/17 21:00 04/06/17 20:59 03/10/17 21:37 Naloxone HCl (Narcan) 0.1 mg PRN IV Sedation scale 3 or 4 03/10/17 16:45 04/09/17 16:44 Nitroglycerin (Ntg) 0.4 mg Q5M PRN SL Prn Chest Pain 03/06/17 22:15 04/05/17 22:14 Ondansetron HCl (Zofran) 4 mg Q6H PRN IVP Nausea & Vomiting 03/06/17 22:15 04/05/17 22:14 Polyethylene Glycol (Miralax) 17 gm DAILYPRN PRN ORAL Constipation 03/06/17 22:15 04/05/17 22:14 Temazepam 15 mg 15 mg HSPRN PRN ORAL Insomnia 03/06/17 22:15 03/13/17 22:14 03/08/17 20:49 [place] March 11, 2017 16:01
--- NOTE | 2017-03-11 16:49 | Internal Med Progress Note ---
Subjective Date of Service: March 11, 2017 Physician Name Jamison,Kanchan Attending Physician Lv Cloud MD Current Medications Medications (Trade) Dose Ordered Sig/Augusto Route PRN Reason Start Time Stop Time Status Last Admin Dose Admin Acetaminophen (Tylenol) 650 mg Q4H PRN ORAL fever 03/06/17 22:15 04/05/17 22:14 Acetaminophen/ Codeine Phosphate (Tylenol #3) 1 tab Q4H PRN ORAL severe pain 03/09/17 10:00 03/16/17 09:59 03/10/17 15:43 Al Hydroxide/Mg Hydroxide (Mylanta II) 30 ml Q6H PRN ORAL dyspepsia 03/06/17 22:15 04/05/17 22:14 Albuterol/ Ipratropium (DuoNeb 0.5-3(2.5)mg/3ml) 3 ml EVERY 4 HOURS PRN HHN Shortness of Breath 03/06/17 22:15 03/11/17 22:14 Aztreonam/Sodium Chloride (Azactam/Sodium Chloride) 55 ml @ 110 mls/hr Q8H IVPB 03/07/17 08:00 03/14/17 07:59 03/11/17 08:53 Escitalopram Oxalate (Lexapro) 5 mg DAILY ORAL 03/07/17 09:00 04/06/17 08:59 03/11/17 08:53 Fentanyl (Duragesic) 1 patch Q72H TDERMAL 03/10/17 18:00 03/17/17 17:59 03/10/17 17:51 Heparin Sodium (Porcine) (Heparin 5000 units/ml) 5,000 units EVERY 12 HOURS SUBQ 03/07/17 21:00 04/06/17 20:59 03/11/17 08:55 Levothyroxine Sodium (Synthroid) 75 mcg DAILY@0630 ORAL 03/07/17 06:30 04/06/17 06:29 03/11/17 06:29 Lidocaine (Lidoderm 5% PATCH) 1 patch DAILY TDERMAL 03/07/17 12:30 04/06/17 12:29 03/11/17 08:54 Mirtazapine (Remeron) 7.5 mg BEDTIME ORAL 03/07/17 21:00 04/06/17 20:59 03/10/17 21:37 Naloxone HCl (Narcan) 0.1 mg PRN IV Sedation scale 3 or 4 03/10/17 16:45 04/09/17 16:44 Nitroglycerin (Ntg) 0.4 mg Q5M PRN SL Prn Chest Pain 03/06/17 22:15 04/05/17 22:14 Ondansetron HCl (Zofran) 4 mg Q6H PRN IVP Nausea & Vomiting 03/06/17 22:15 04/05/17 22:14 Polyethylene Glycol (Miralax) 17 gm DAILYPRN PRN ORAL Constipation 03/06/17 22:15 04/05/17 22:14 Temazepam 15 mg 15 mg HSPRN PRN ORAL Insomnia 03/06/17 22:15 03/13/17 22:14 03/08/17 20:49 Allergies: Coded Allergies: HYDROCODONE (Verified Allergy, Unknown, 03/06/17) PENICILLINS (Unverified Allergy, Unknown, 03/06/17) SULFA (SULFONAMIDE ANTIBIOTICS) (Unverified Allergy, Unknown, 03/06/17) ROS Limited/Unobtainable: Yes Subjective 87 YO F admitted with altered mental status. Now UTI. Cover for Int Med-Dr Cloud. Await discharge to [facility]. Objective Last Vital Signs Date Time Temp Pulse Resp B/P Pulse Ox O2 Delivery O2 Flow Rate FiO2 03/11/17 15:47 97.9 79 20 129/66 96 Nasal Cannula 2.0 03/11/17 08:02 28 Laboratory Tests Test 03/11/17 07:25 White Blood Count 8.7 K/UL (4.8-10.8) Red Blood Count 3.49 M/UL (4.20-5.40) L Hemoglobin 10.0 G/DL (12.0-16.0) L Hematocrit 31.1 % (37.0-47.0) L Mean Corpuscular Volume 89 FL (80-99) Mean Corpuscular Hemoglobin 28.7 PG (27.0-31.0) Mean Corpuscular Hemoglobin Concent 32.2 G/DL (32.0-36.0) Red Cell Distribution Width 14.0 % (11.6-14.8) Platelet Count 210 K/UL (150-450) Mean Platelet Volume 6.6 FL (6.5-10.1) Neutrophils (%) (Auto) 62.9 % (45.0-75.0) Lymphocytes (%) (Auto) 27.2 % (20.0-45.0) Monocytes (%) (Auto) 6.2 % (1.0-10.0) Eosinophils (%) (Auto) 2.8 % (0.0-3.0) Basophils (%) (Auto) 0.9 % (0.0-2.0) Sodium Level 140 mEQ/L (135-145) Potassium Level 3.6 mEQ/L (3.4-4.9) Chloride Level 101 mEQ/L (98-107) Carbon Dioxide Level 25 mEQ/L (20-30) Anion Gap 14 (5-15) Blood Urea Nitrogen 13 mg/dL (7-23) Creatinine 1.0 mg/dL (0.5-0.9) H Estimat Glomerular Filtration Rate mL/min (>60) Glucose Level 93 mg/dL (74-106) Calcium Level 8.4 mg/dL (8.6-10.2) L Magnesium Level 1.7 mg/dL (1.7-2.5) Total Bilirubin 0.4 mg/dL (0.0-1.2) Aspartate Amino Transf (AST/SGOT) 30 U/L (5-40) Alanine Aminotransferase (ALT/SGPT) 31 U/L (3-33) Alkaline Phosphatase 112 U/L (35-104) H Total Protein 5.5 g/dL (6.6-8.7) L Albumin 2.8 g/dL (3.5-5.2) L Globulin 2.7 g/dL Albumin/Globulin Ratio 1.0 (1.0-2.7) Intake and Output 03/10/17 03/11/17 19:00 07:00 Intake Total 1070 ml 110 ml Output Total 500 ml 400 ml Balance 570 ml -290 ml Intake Oral 360 ml IV Total 710 ml 110 ml Output Urine Total 500 ml 400 ml Objective General: alert, cooperative, no distress, appears stated age Head: normocephalic, without obvious abnormality, atraumatic Eyes: conjunctivae/corneas clear. PERRL, EOM's intact Throat: lips, mucosa, and tongue normal. MMM Neck: supple, symmetrical, trachea midline, and no JVD Lungs: clear to auscultation bilaterally Heart: regular rate and rhythm, S1, S2 normal, no murmur, click, rub or gallop Abdomen: soft, non-tender, non-distended, bowel sounds normal; no masses or organomegaly Extremities: extremities normal, atraumatic, no cyanosis or edema Pulses: 2+ and symmetric Skin: skin color, texture, turgor normal; no rashes or lesions Neurologic: grossly normal, no focal deficits Assessment/Plan Problem List: (1) Renal failure (ARF), acute on chronic Assessment & Plan: Resolving on IV fluids. (2) Congestive heart failure (3) Hypothyroidism Assessment & Plan: Cont levoxyl. (4) Hypercholesteremia (5) Lumbar stenosis (6) Osteoporosis (7) UTI (urinary tract infection) Assessment & Plan: E. Coli. Cont aztreonam - See ID note. (8) ARF (acute renal failure) (9) Altered mental status (10) Major depressive disorder Assessment & Plan: See Psych note. Assessment/Plan Discharge to [facility] today. KANCHAN JAMISON March 11, 2017 16:49
[2017-03-11] MEDS: Tylenol #3 tab (300mg/30mg) ORAL PRN (19:28)
[2017-03-11 20:00] VITALS: BP 146/85
--- NOTE | 2017-03-11 21:19 | Progress Note ---
SUBJECTIVE: The patient is stable at baseline. No behavior issues. The patient is more lucid, however, he still has mild cognitive impairment. No anxiety. The patient is often dysphoric. MENTAL STATUS EXAMINATION: The patient is alert and oriented times place, self, and situation. Mood is dysphoric. Affect is constricted. Congruent mood. Thought process is concrete. Thought content, no suicidal or homicidal ideation. ASSESSMENT: 1. Depression. 2. Cognitive impairment. PLAN: 1. The patient will be continued on current medication. 2. Provided with reality orientation and observation. Vimal Funes M.D. DR: Pee JOB#: [id number] CC:
[2017-03-11] MEDS ORDERED: Naloxone 0.4mg/ml Inj IV PRN (23:00)
[2017-03-11] MEDS ORDERED: Nitroglycerin Subl 0.4mg tab (Bottle Of 25) SL PRN (23:00)
[2017-03-12] VITALS: BP 116/63
[2017-03-12] MEDS: Aztreonam Inj 0.5 GM in NS 55 ML IVPB SCH ×2 (00:29→08:41)
[2017-03-12] MEDS ORDERED: Tylenol #3 tab (300mg/30mg) ORAL PRN (02:00)
[2017-03-12 04:00] VITALS: BP 126/77
[2017-03-12] MEDS ORDERED: Mylanta II UD 30ml ORAL PRN (04:15)
[2017-03-12 06:23] LABS: BASOPHILS % (AUTO) 0.9 % (0.0-2.0); EOSINOPHILS % (AUTO) 2.1 % (0.0-3.0); LYMPHOCYTES % (AUTO) 29.5 % (20.0-45.0); MEAN CORPUSCULAR HEMOGLOBIN 28.7 PG (27.0-31.0); MEAN CORPUSCULAR HGB CONC 32.2 G/DL (32.0-36.0); MEAN CORPUSCULAR VOLUME 89 FL (80-99); MEAN PLATELET VOLUME 6.2 FL (6.5-10.1); MONOCYTES % (AUTO) 6.5 % (1.0-10.0); PLATELET COUNT 262 K/UL (150-450); RED BLOOD COUNT 3.67 M/UL (4.20-5.40); RED CELL DISTRIBUTION WIDTH 14.1 % (11.6-14.8); WHITE BLOOD COUNT 9.8 K/UL (4.8-10.8)
[2017-03-12 06:36] LABS: ALANINE AMINOTRANSFERASE 33 U/L (3-33); ALBUMIN/GLOBULIN RATIO 1.5 (1.0-2.7); ANION GAP 17 (5-15); ASPARTATE AMINO TRANSFERASE 38 U/L (5-40); CALCIUM 8.3 mg/dL (8.6-10.2); CARBON DIOXIDE 23 mEQ/L (20-30); CHLORIDE 101 mEQ/L (98-107); HEMOLYSIS 34; SODIUM 141 mEQ/L (135-145)
[2017-03-12 07:29] LABS: MAGNESIUM 1.7 mg/dL (1.7-2.5)
[2017-03-12 08:02] VITALS: BP 90/48
[2017-03-12 08:37] VITALS: BP 126/64
--- NOTE | 2017-03-12 08:49 | General Progress Note ---
Assessment/Plan Assessment/Plan (1) Alerted Mental status (2) UTI (3) Lumbar spinal stenosis (4) Lumbago (5) Sacral decubitus ulcer Patient to be continued on Tylenol #3 and Fentanyl. Pt was discussed with Dr. Arteaga and he concurred. Subjective Date patient seen: March 12, 2017 Time patient seen: 07:15 - am Allergies: Coded Allergies: HYDROCODONE (Verified Allergy, Unknown, 03/06/17) PENICILLINS (Unverified Allergy, Unknown, 03/06/17) SULFA (SULFONAMIDE ANTIBIOTICS) (Unverified Allergy, Unknown, 03/06/17) Subjective REVIEW OF SYSTEMS: Denies rash, fever, chills, sweating, dizziness, drowsiness, blurred vision, sore throat, or change in her weight. No shortness of breath or chest pain. No nausea, vomiting, or blood in the stool or urine. No bowel or bladder incontinence. No dysuria. SUBJECTIVE: Patient continues to have pain. The pain is reduced on the medication which no signs of increased confusion noted. Objective Last 24 Hour Vital Signs Date Time Temp Pulse Resp B/P Pulse Ox O2 Delivery O2 Flow Rate FiO2 03/12/17 08:37 84 126/64 03/12/17 08:02 98.6 84 22 90/48 93 Nasal Cannula 2.0 03/12/17 04:00 98.4 103 19 126/77 95 Room Air 03/12/17 00:00 98.2 80 18 116/63 91 Room Air 03/11/17 23:28 96 Nasal Cannula 2.0 28 03/11/17 23:28 Nasal Cannula 2.0 28 03/11/17 23:27 80 16 Nasal Cannula 2.0 28 03/11/17 20:00 97.9 80 21 146/85 92 Room Air 03/11/17 16:00 76 03/11/17 15:47 97.9 79 20 129/66 96 Nasal Cannula 2.0 03/11/17 12:01 97.9 71 20 133/59 97 Nasal Cannula 2.0 03/11/17 12:00 76 Intake and Output 03/11/17 03/12/17 19:00 07:00 Intake Total 170 ml 300 ml Output Total 400 ml 500 ml Balance -230 ml -200 ml Intake Oral 170 ml 300 ml Output Urine Total 400 ml 500 ml Laboratory Tests 03/12/17 05:10: White Blood Count 9.8, Red Blood Count 3.67L, Hemoglobin 10.5L, Hematocrit 32.7L , Mean Corpuscular Volume 89, Mean Corpuscular Hemoglobin 28.7, Mean Corpuscular Hemoglobin Concent 32.2, Red Cell Distribution Width 14.1, Platelet Count 262, Mean Platelet Volume 6.2L, Neutrophils (%) (Auto) 61.0, Lymphocytes ( %) (Auto) 29.5, Monocytes (%) (Auto) 6.5, Eosinophils (%) (Auto) 2.1, Basophils (%) (Auto) 0.9, Sodium Level 141, Potassium Level 4.0, Chloride Level 101, Carbon Dioxide Level 23, Anion Gap 17H, Blood Urea Nitrogen 11, Creatinine 1.0H , Estimat Glomerular Filtration Rate , Glucose Level 78, Calcium Level 8.3L, Phosphorus Level 3.0, Magnesium Level 1.7, Total Bilirubin 0.3, Aspartate Amino Transf (AST/SGOT) 38, Alanine Aminotransferase (ALT/SGPT) 33, Alkaline Phosphatase 114H, Total Protein 5.0L, Albumin 3.0L, Globulin 2.0, Albumin/ Globulin Ratio 1.5, Vancomycin Level Trough 7.6 Height (Feet): 5 Height (Inches): 4.00 Weight (Pounds): 170 Objective GENERAL: Alert and awake. NECK: Range of motion is decreased due to the patient's clinical condition with tenderness to paracervical muscles. No adenopathy. LUNGS: Decreased breath sounds bilaterally. HEART: S1 and S2 regular. ABDOMEN: Obese. BACK: Range of motion is decreased due to the patient's clinical condition with tenderness to paraspinal muscles. No tenderness to trapezius or rhomboid muscles. Sacral decubitus ulcer noted. EXTREMITIES: No cyanosis. No clubbing. NEURO: No changes. JUDY VOSS March 12, 2017 08:48
[2017-03-12] MEDS ORDERED: Heparin 5000 units/ml inj SUBQ SCH (09:00)
[2017-03-12] MEDS ORDERED: Escitalopram Oxalate 5mg tab ORAL SCH (09:00)
[2017-03-12 12:00] VITALS: BP 122/55
--- NOTE | 2017-03-12 12:36 | Internal Med Progress Note ---
Subjective Date of Service: March 12, 2017 Physician Name Adrian Jamison Attending Physician Lv Cloud MD Current Medications Medications (Trade) Dose Ordered Sig/Augusto Route PRN Reason Start Time Stop Time Status Last Admin Dose Admin Acetaminophen (Tylenol) 650 mg Q4H PRN ORAL fever 03/12/17 02:15 04/11/17 02:14 Acetaminophen/ Codeine Phosphate (Tylenol #3) 1 tab Q4H PRN ORAL Severe Pain (Pain Scale 7-10) 03/12/17 02:00 03/19/17 01:59 03/12/17 10:16 Al Hydroxide/Mg Hydroxide (Mylanta II) 30 ml Q6H PRN ORAL dyspepsia 03/12/17 04:15 04/11/17 04:14 Aztreonam/Sodium Chloride (Azactam/Sodium Chloride) 55 ml @ 110 mls/hr Q8H IVPB 03/12/17 00:00 03/19/17 00:00 03/12/17 08:41 Escitalopram Oxalate (Lexapro) 5 mg DAILY ORAL 03/12/17 09:00 04/11/17 08:59 03/12/17 08:31 Fentanyl (Duragesic) 1 patch Q72H TDERMAL 03/13/17 18:00 03/20/17 17:59 Heparin Sodium (Porcine) (Heparin 5000 units/ml) 5,000 units EVERY 12 HOURS SUBQ 03/12/17 09:00 04/11/17 08:59 03/12/17 08:33 Levothyroxine Sodium (Synthroid) 75 mcg DAILY@0630 ORAL 03/12/17 06:30 04/11/17 06:29 03/12/17 05:53 Lidocaine (Lidoderm 5% PATCH) 1 patch DAILY TDERMAL 03/12/17 09:00 04/11/17 08:59 03/12/17 08:31 Mirtazapine (Remeron) 7.5 mg BEDTIME ORAL 03/12/17 21:00 04/11/17 20:59 Naloxone HCl (Narcan) 0.1 mg PRN IV Sedation scale 3 or 4 03/11/17 23:00 04/10/17 22:59 Nitroglycerin (Ntg) 0.4 mg Q5M PRN SL Prn Chest Pain 03/11/17 23:00 04/10/17 22:59 Ondansetron HCl (Zofran) 4 mg Q6H PRN IVP Nausea & Vomiting 03/12/17 04:15 04/11/17 04:14 Polyethylene Glycol (Miralax) 17 gm DAILYPRN PRN ORAL Constipation 03/12/17 22:15 04/11/17 22:14 Temazepam (Restoril) 15 mg HSPRN PRN ORAL Insomnia 03/12/17 22:15 03/19/17 22:14 Allergies: Coded Allergies: HYDROCODONE (Verified Allergy, Unknown, 03/06/17) PENICILLINS (Unverified Allergy, Unknown, 03/06/17) SULFA (SULFONAMIDE ANTIBIOTICS) (Unverified Allergy, Unknown, 03/06/17) ROS Limited/Unobtainable: Yes Subjective 87 YO F admitted with altered mental status. Now UTI. Cover for Int Med-Dr Cloud. Discharge on 03/11/17 held due to family appeal of discharge-see discharge planning noet. Await discharge to [facility] today 03/12/17 Objective Last Vital Signs Date Time Temp Pulse Resp B/P Pulse Ox O2 Delivery O2 Flow Rate FiO2 03/12/17 08:37 84 126/64 03/12/17 08:02 98.6 22 93 Nasal Cannula 2.0 03/11/17 23:28 28 Laboratory Tests Test 03/12/17 05:10 White Blood Count 9.8 K/UL (4.8-10.8) Red Blood Count 3.67 M/UL (4.20-5.40) L Hemoglobin 10.5 G/DL (12.0-16.0) L Hematocrit 32.7 % (37.0-47.0) L Mean Corpuscular Volume 89 FL (80-99) Mean Corpuscular Hemoglobin 28.7 PG (27.0-31.0) Mean Corpuscular Hemoglobin Concent 32.2 G/DL (32.0-36.0) Red Cell Distribution Width 14.1 % (11.6-14.8) Platelet Count 262 K/UL (150-450) Mean Platelet Volume 6.2 FL (6.5-10.1) L Neutrophils (%) (Auto) 61.0 % (45.0-75.0) Lymphocytes (%) (Auto) 29.5 % (20.0-45.0) Monocytes (%) (Auto) 6.5 % (1.0-10.0) Eosinophils (%) (Auto) 2.1 % (0.0-3.0) Basophils (%) (Auto) 0.9 % (0.0-2.0) Sodium Level 141 mEQ/L (135-145) Potassium Level 4.0 mEQ/L (3.4-4.9) Chloride Level 101 mEQ/L (98-107) Carbon Dioxide Level 23 mEQ/L (20-30) Anion Gap 17 (5-15) H Blood Urea Nitrogen 11 mg/dL (7-23) Creatinine 1.0 mg/dL (0.5-0.9) H Estimat Glomerular Filtration Rate mL/min (>60) Glucose Level 78 mg/dL (74-106) Calcium Level 8.3 mg/dL (8.6-10.2) L Phosphorus Level 3.0 mg/dL (2.5-4.8) Magnesium Level 1.7 mg/dL (1.7-2.5) Total Bilirubin 0.3 mg/dL (0.0-1.2) Aspartate Amino Transf (AST/SGOT) 38 U/L (5-40) Alanine Aminotransferase (ALT/SGPT) 33 U/L (3-33) Alkaline Phosphatase 114 U/L (35-104) H Total Protein 5.0 g/dL (6.6-8.7) L Albumin 3.0 g/dL (3.5-5.2) L Globulin 2.0 g/dL Albumin/Globulin Ratio 1.5 (1.0-2.7) Vancomycin Level Trough 7.6 ug/mL (5.0-12.0) Intake and Output 03/11/17 03/12/17 19:00 07:00 Intake Total 170 ml 300 ml Output Total 400 ml 500 ml Balance -230 ml -200 ml Intake Oral 170 ml 300 ml Output Urine Total 400 ml 500 ml Objective General: alert, cooperative, no distress, appears stated age Head: normocephalic, without obvious abnormality, atraumatic Eyes: conjunctivae/corneas clear. PERRL, EOM's intact Throat: lips, mucosa, and tongue normal. MMM Neck: supple, symmetrical, trachea midline, and no JVD Lungs: clear to auscultation bilaterally Heart: regular rate and rhythm, S1, S2 normal, no murmur, click, rub or gallop Abdomen: soft, non-tender, non-distended, bowel sounds normal; no masses or organomegaly Extremities: extremities normal, atraumatic, no cyanosis or edema Pulses: 2+ and symmetric Skin: skin color, texture, turgor normal; no rashes or lesions Neurologic: grossly normal, no focal deficits Assessment/Plan Problem List: (1) Renal failure (ARF), acute on chronic Assessment & Plan: Resolving on IV fluids. (2) Congestive heart failure (3) Hypothyroidism Assessment & Plan: Cont levoxyl. (4) Hypercholesteremia (5) Lumbar stenosis (6) Osteoporosis (7) UTI (urinary tract infection) Assessment & Plan: E. Coli. Cont aztreonam - See ID note. (8) ARF (acute renal failure) (9) Altered mental status (10) Major depressive disorder Assessment & Plan: See Psych note. Status: stable Assessment/Plan Discharge to [facility] today. ADRIAN JAMISON March 12, 2017 12:36
[2017-03-12] MEDS ORDERED: Tubing IV Secondary IV ONE (14:18)
[2017-03-12] MEDS ORDERED: Sterile Water Irrig 1000ml IRRIG ONE (14:18)
[2017-03-12] MEDS ORDERED: NS 275ml ONE (14:18)
[2017-03-12] MEDS ORDERED: Miralax 17gm pkt ORAL PRN (22:15)
--- NOTE | 2017-03-28 08:26 | Physician Query ---
PLEASE COMPLETE THE DOCUMENT BEFORE SIGNING Dear Dr. Hakeem Cloud Date:03/28/2017 New Car Salesperson/CDS Name: Adwoa Alamo CCS Exercise your independent professional judgment when responding to query. Question asked do not imply a particular answer is desired/expected Clinical Documentation States: "Sepsis" documented in .....Several PROGRESS NOTES under assessment states Sepsis Assessment/Plan Problems: (1) Sepsis (2) UTI (urinary tract infection) (3) ARF (acute renal failure) (4) Elevated troponin (5) Altered mental status (6) Lumbar stenosis Clinical Findings Show: General variables [x] Fever (temp >38.3 degrees C or 100.4 degrees F) [] Hypothermia (temp<36 degrees C or 96.0 degrees F) [] Heart rate > 90/min [] Tachypnea/RR > 20 bpm [] pCO2 < 32 mmHg [x] Altered mental status [] Significant edema or positive fluid balance (>20 ml/kg over 24h) [] Hyperglycemia ( Plasma >140 mg/dL or 7.7 mmol/L) in the abscence of diabetes Inflammatory variables [x] Leukocytosis (WBC count > 12,000 L1 [] Leukopenia (WBC count < 4000 L1) [] Normal WBC count with greater than 10% immature forms (Bandemia) Was SEPSIS present on admission? [ X] Yes [ ] No [ ] Clinically undeterminable Please also document in your Progress Notes and/or Discharge Summary and indicate if the condition was present on admission. Lv Cloud M.D. Date & Time [facility]
== END 2017-03-12 14:19 | disposition home or self-care (01) | DRG 871 ==
LOC: EDBD 19:08 → EMR 19:27 → 2W 19:45 → EDBEDREQSVC 21:14 → EDBEDREQ 21:47 → 2E 03-09 08:04 → 4W 03-11 22:18
DX: A41.9 Sepsis, unspecified organism (principal); G93.40 Encephalopathy, unspecified; N17.9 Acute kidney failure, unspecified; L89.154 Pressure ulcer of sacral region, stage 4; I50.9 Heart failure, unspecified; I27.2 Other secondary pulmonary hypertension; N39.0 Urinary tract infection, site not specified; F11.20 Opioid dependence, uncomplicated; F03.90 Unspecified dementia, unspecified severity, without behavioral disturbance, psychotic disturbance, mood disturbance, and anxiety; G89.4 Chronic pain syndrome; Z88.0 Allergy status to penicillin; Z88.2 Allergy status to sulfonamides; E78.5 Hyperlipidemia, unspecified; M81.0 Age-related osteoporosis without current pathological fracture; E03.9 Hypothyroidism, unspecified; G31.84 Mild cognitive impairment of uncertain or unknown etiology; M48.06 Spinal stenosis, lumbar region; R74.0 Nonspecific elevation of levels of transaminase and lactic acid dehydrogenase [LDH]; F32.9 Major depressive disorder, single episode, unspecified; F41.9 Anxiety disorder, unspecified; N18.9 Chronic kidney disease, unspecified; B96.20 Unspecified Escherichia coli [E. coli] as the cause of diseases classified elsewhere; I45.10 Unspecified right bundle-branch block; R94.5 Abnormal results of liver function studies
CPT/HCPCS: 36415; 70450; 71010; 76705; 76775; 80048; 80053; 80069; 80202; 80300; 81001; 81003; 82436; 82550; 82553; 83605; 83735; 83880; 83935; 84100; 84133; 84300; 84439; 84443; 84484; 84550; 85025; 86705; 86709; 86803; 87040; 87070; 87081; 87086; 87181; 87205; 87340; 89050; 93005; 93306; 94664; 94760